=== PATIENT | female | born 1940 | race Caucasian/White ===

== ENCOUNTER 2019-04-06 14:41 | Inpatient (IN) | payer OTHER ==
[~2019-04-06] VITALS: Ht 152.4 cm; Wt 76.1 kg
[2019-04-06] VITALS (26 sets, daily range): BP systolic 82–116; BP diastolic 35–54
--- NOTE | ~2019-04-06 | HC ---
[facility] [place] [address] CONSULTATION Name: MIGUEL GRANDA Room #: 354-P ADM IN M.R.#: [id number] Admission: 04/06/19 ������������������ Attend Phys: Krishna Suarez Discharge: ������������������ Date of : 38 Report #: [id number] THIS REPORT FOR: //name// CC: FAM unknown Krishna Lopez DATE OF SERVICE: 04/14/2019 HISTORY OF PRESENT ILLNESS: The patient is an 78-year-old white female who was admitted to [facility] with right-sided abdominal pain, nausea, weakness, and shortness of breath. She ended up being diagnosed with septic shock, cholecystitis, acute toxic metabolic encephalopathy, and rhabdomyolysis. She underwent ERCP with sphincterotomy with stone removal on 04/07/2019. She underwent a cholecystostomy tube on 04/10/2019 and is to have that in for approximately 6 weeks with plan for a later cholecystectomy. Her course has been complicated by acute hypoxic respiratory failure, warranting mechanical ventilation. She also had acute renal failure superimposed on chronic kidney disease and did warrant a period of dialysis. She had thrombocytopenia. 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 She has been extubated. She no longer is on dialysis, but she has serious weakness and functional decline with her critical illness myopathy. She also has some confusion, disorientation with her encephalopathy, although it does appear to be improving. We are seeing her in rehabilitation medicine consultation. PAST MEDICAL HISTORY: She does have history of recurrent herpetic infection and hypothyroidism, on levothyroxine. MEDICATIONS: Please see the full medication listing. DRUG ALLERGIES: None listed. SOCIAL HISTORY: Living in an apartment with her son who has Down syndrome, no step. She did not utilize gait aids. REVIEW OF SYSTEMS: She did not offer any current complaints of chest pain, shortness of breath or abdominal discomfort. Notes she is overall weak. PHYSICAL EXAMINATION: GENERAL: She is an 78-year-old white female, seen in the intensive care unit. VITAL SIGNS: Temperature 96.4, pulse 80, respirations 19, blood pressure 150/57. NEUROLOGIC: The patient is alert. She does follow basic one-step commands, although there is some latency to her responses. Facies appeared symmetric. MUSCULOSKELETAL: Upper extremities, she has functional range of motion, strength is probably a grade 3+/5. In her lower extremities, she really was [facility] [address] [place] [address] CONSULTATION Name: MIGUEL GRANDA Room #: 354-P [facility] IN M.R.#: [id number] Admission: 04/06/19 ������������������ Attend Phys: Krishna Suarez Discharge: ������������������ Date of : 38 Report #: [id number] only a grade 3- to 3/5. She is able to contract the muscles, but I was not able to get her to lift her leg up off the bed. DTRs were trace to 1. Functionally, she has been max assist for grooming and max assist for bathing per occupational therapy. She appears to have a motor planning impairment. ASSESSMENT: An 78-year-old white female with the following problem list: 1. Critical illness myopathy. 2. Toxic metabolic encephalopathy. 3. Septic shock. 4. Acute hypoxic respiratory failure. 5. Acute renal insufficiency, warranting an episode of dialysis. 6. Prolonged ICU stay. 7. Cholecystitis, status post ERCP with sphincterotomy and stone removal. 8. Status post cholecystostomy. PLAN: Therapy evaluations are underway. We would certainly anticipate that she would benefit from an acute in-hospital inpatient rehabilitation stay as she further medically stabilizes. She does have multiple medical comorbidities and the multiple audit consultant physicians could continue to follow while she is on the acute inpatient rehab ott, which would not be an option if she were to transfer to a fci. At this point, we will be glad to follow along with you regarding her rehab therapy needs. ��������������������������������������������� ���������������������������������������� By: ��������������������������������������������� [id number] 0055 Alexis Raza MD /nt
[2019-04-06 18:16] LABS: BE(vivo) -5.8 mmol/L (-2 to +3); HCO3 17.4 mmol/L (22.0-26.0); PCO2 28.1 mmHg (35.0-45.0); PO2 127.1 mmHg (80.0-100.0); sO2 98.6 % (92.0-98.0)
--- NOTE | 2019-04-06 19:30 | NUR ---
REPORT RECEIVED FROM MEIR FITZGERALD RN AT [facility]. PHYSICIAN CERTIFICATION STATEMENT RECEIVED. PT TRANSPORTED PER EMS, THEN AT 1750 ADMITTED TO ICU #[id number] WITH DIAGNOSIS: SEPSIS, CHOLEYCYSTITIS, RESP FAILURE, CHF, ANNE, LIVER FAILURE. CONTINUED NS WITH KCL 40MEQ 125CC/HR. LEVOPHED INFUSING AT 1 MCG/MIN. ALERT, ORIENTED, SR, TOLERATING BIPAP, NPO, ABD SOFT, BLANCO WITH ADEQUATE URINE OUTPUT. DR. BRADEN WILKERSON PER ANSWERING SERVICE. PRESENT TO SEE PT, THEN HE UPDATED FAMILY MEMBERS ON PLAN OF CARE. THIS VERY PLEASANT FAMILY IN TO SEE PT, GIVEN PRIVACY CODE AND UPDATED ON GUIDELINES FOR ICU. SEE ASSESSMENT FOR DETAILS.
--- NOTE | 2019-04-06 20:11 | NUR ---
CONSULTED TO PLACE A LINE FOR A PATIENT ADMITTEING WITH SEPSIS. ORDER AND CONSENT NOTED. DUE TO THE PATIENTS RENAL FUNCTION AND EGFR BELOW 30 A CENTRAL LINE APPROACH WAS CHOOSEN. DISCUSSED WITH THE PATIENT THE PROCEDURE WELL THE BENIFITS AND RISK OF INFECTION, ARTERIAL CANNULATION AND PNEUMO. SHE VERBALIZED UNDERSTANDING AND CONSENT WAS SIGNED. THE RIGHT JUGULAR VEIN WAS WIDLEY PATENT. A #6F TRIPLE LUMEN POWEWRINJECTABLE JACC CENTRAL LINE WAS PLACED PER HOSPITAL POLICY AFTER A BEDSIDE TIMEOUT WAS COMPLETED.LINE WAS 25CM AND ADVANCED TO 18CM. A STAT CHEST XRAY WAS ORDERED FOR TIP LOCATION VERIFICATION
[2019-04-06 21:06] LABS: APTT 31.4 Seconds (24.5-32.8); INR 1.1; PROTIME 11.4 Seconds (9.3-11.4)
[2019-04-06 21:08] LABS: CALCIUM 9.2 mg/dL (8.5-10.1); CREATININE 3.1 mg/dL (0.6-1.0); POTASSIUM 3.3 mmol/L (3.5-5.1)
[2019-04-06 21:12] LABS: FIBRINOGEN 531.5 mg/dL (210-360)
[2019-04-06 21:44] LABS: BE(vivo) -6.5 mmol/L (-2 to +3); PCO2 28.5 mmHg (35.0-45.0); PO2 100.3 mmHg (80.0-100.0); pH 7.393 (7.360-7.450); sO2 97.6 % (92.0-98.0)
[2019-04-06 21:53] LABS: URINE BILIRUBIN 2+ (Negative); URINE BLOOD 3+ (Negative); URINE CLARITY CLOUDY; URINE COLOR YELLOW; URINE GLUCOSE-RANDOM* NEGATIVE (Negative); URINE KETONES NEGATIVE (Negative); URINE LEUKOCYTES-REFLEX NEGATIVE (Negative); URINE NITRITE-REFLEX NEGATIVE (Negative); URINE PROTEIN (DIPSTICK) 2+ (Negative); URINE SPECIFIC GRAVITY 1.015 (1.005-1.035); URINE UROBILINOGEN 0.2 E.U./dl (0.2-1.0)
[2019-04-06 22:06] LABS: ICTOTEST (BILI CONFIRMATORY) Positive (Negative)
[2019-04-06 22:09] LABS: CELLULAR CASTS 0-3 Few /LPF (None Seen); COARSE GRANULAR CASTS 0-3 Few /LPF (None Seen); FINE GRANULAR CASTS 4-10 Moderate /LPF (None Seen); HYALINE CASTS 0-3 Few /LPF (None Seen); MUCUS 0-3 Light strn/LPF (None Seen); SQUAMOUS 4-10 Moderate /LPF (0-3); URINE WBC-REFLEX None Seen /HPF (0-5); WBC CASTS 0-3 Few /LPF (None Seen)
[2019-04-06 22:10] LABS: BACTERIA-REFLEX None Seen /HPF (None Seen); URIC ACID CRYSTALS 4-10 Moderate /LPF (None Seen); URINE RBC 3-10 Few /HPF (0-2)
[2019-04-06 22:11] LABS: TRANSITIONAL EPITHEL CELL 4-10 Moderate /LPF (None Seen)
[2019-04-06 22:49] LABS: HEMATOCRIT 36.7 % (37.0-47.0); HEMOGLOBIN 12.2 gm/dL (12.0-15.0); MCH 30.8 pg (26.0-34.0); MCHC 33.3 g/dL (28.0-37.0); MCV 92.6 fL (80.0-100.0); RBC 3.96 mil/uL (4.20-5.00); RDW 14.7 % (10.5-14.5); WBC 21.3 thou/uL (4.0-11.0)
[2019-04-07] VITALS (88 sets, daily range): BP systolic 81–164; BP diastolic 37–103
[2019-04-07 04:28] LABS: HEMATOCRIT 34.7 % (37.0-47.0); HEMOGLOBIN 11.5 gm/dL (12.0-15.0); MCH 31.1 pg (26.0-34.0); MCHC 33.2 g/dL (28.0-37.0); MCV 93.8 fL (80.0-100.0); PLATELET COUNT 62 thou/uL (150-400); RDW 15.5 % (10.5-14.5); WBC 30.6 thou/uL (4.0-11.0)
[2019-04-07 04:29] LABS: CALCIUM 8.6 mg/dL (8.5-10.1); CREATININE 3.2 mg/dL (0.6-1.0)
[2019-04-07 04:34] LABS: POTASSIUM 5.1 mmol/L (3.5-5.1)
[2019-04-07 05:17] LABS: ABSOLUTE NEUTROPHILS 24.8 thou/uL (1.4-8.2); IMMATURE MONONUCLEARS 1 %; METAMYELOCYTES 10 %; MYELOCYTES 2 %; PLATELET ESTIMATE DECREASED
[2019-04-07 05:18] LABS: TOXIC GRANULATION 1+
--- NOTE | 2019-04-07 06:00 | NUR ---
REMAINS ON BIPAP 40 % FIO2. PT IS CALM AND COOPERATIVE. HAS SLEPT AT INTERVALS TONIGHT. HAD A 500 CC BOLUS NS FOR LOW UO. ONLY 180 CC TOTAL UO THIS SHIFT. Phoebe SCHRADER NOTIFIED. ALSO MADE AWARE OF + BLOOD CULTURES FOR GRAM NEG RODS AND WBC 30,000 CVP 12 TO 15. SINUS RHYTHM AFEBRILE TEMP 98.6 AXI MORPHINE 2 MG EARLIER GIVEN FOR HEADACHE. REMAINS JAUNDICE. A VERY SWEET LITTLE LADY. DOCTORS PRATIMA HUFFMAN AND DR MAJANO CONSULTED THIS EVENING. PT ONLY REQUEST IS A DRINK OF WATER. WILL CONT TO MONITOR.
[2019-04-07 09:37] LABS: ALBUMIN 2.2 g/dL (3.4-5.0); DIRECT BILIRUBIN 5.6 mg/dL (<0.1-0.3); TOTAL BILIRUBIN 6.4 mg/dL (<0.1-1.0); TOTAL PROTEIN 5.1 g/dL (6.4-8.2)
[2019-04-07 09:49] LABS: URINE CREATININE-RANDOM* 81.3 mg/dL
[2019-04-07 12:38] LABS: ALBUMIN 2.1 g/dL (3.4-5.0); CALCIUM 8.3 mg/dL (8.5-10.1); CREATININE 3.6 mg/dL (0.6-1.0); PHOSPHORUS 3.5 mg/dL (2.5-4.9); POTASSIUM 4.9 mmol/L (3.5-5.1)
--- NOTE | 2019-04-07 14:30 | NUR ---
Pt was taken to surgery for ERCP. Signature for consent was obtained prior to leaving for surgery. Levophed weaned off at 1210.
--- NOTE | 2019-04-07 16:00 | NUR ---
Pt returned to ICU from surgery following ERCP. Pt is intubated and drowsy. Pt will arouse and VELAZQUEZ weakly. Family in waiting area.
[2019-04-07 16:36] LABS: BE(vivo) -11.3 mmol/L (-2 to +3); HCO3 15.5 mmol/L (22.0-26.0); PCO2 37.9 mmHg (35.0-45.0); PO2 90.1 mmHg (80.0-100.0); sO2 95.4 % (92.0-98.0)
--- NOTE | 2019-04-07 19:00 | NUR ---
Pt remains on vent. Lightly sedated with Propofol. Urine output is improving.
--- NOTE | 2019-04-07 19:15 | NUR ---
Report given to oncoming RN. Remains NSR. Levophed reamins off.
[2019-04-07 20:06] LABS: CALCIUM 8.3 mg/dL (8.5-10.1); CREATININE 3.7 mg/dL (0.6-1.0); POTASSIUM 4.8 mmol/L (3.5-5.1)
--- NOTE | 2019-04-07 22:07 | NUR ---
Late entry for 1100 today: Renal and ID consults were obtained. Pt oliguric. Urine specimen sent to lab prior to administration of Lasix 100 mg IV-see emar. Slowly weaning Levophed. Pt to go to surgery today for ERCP. Family at bedside.
[2019-04-07] MEDS ORDERED: ACYCLOVIR 400400 MG PO (22:32)
[2019-04-07] MEDS ORDERED: SYNTHROID50 MCG PO (22:34)
[2019-04-07] MEDS ORDERED: PULMICORT0.5 MG/22 (22:37)
[2019-04-07] MEDS ORDERED: SIMVASTATIN40 MG PO (22:38)
[2019-04-07] MEDS ORDERED: COLESTID1 GM PO (22:40)
[2019-04-07] MEDS ORDERED: BETIMOL5 ML OPHTHALMIC (22:42)
[2019-04-08] VITALS (92 sets, daily range): BP systolic 81–162; BP diastolic 40–83
[2019-04-08 05:22] LABS: BE(vivo) -3.7 mmol/L (-2 to +3); PCO2 37.2 mmHg (35.0-45.0); PO2 153.2 mmHg (80.0-100.0); sO2 98.9 % (92.0-98.0)
[2019-04-08 05:33] LABS: WBC 33.2 thou/uL (4.0-11.0)
[2019-04-08 05:35] LABS: HEMOGLOBIN 11.4 gm/dL (12.0-15.0); MCH 31.3 pg (26.0-34.0); MCHC 33.5 g/dL (28.0-37.0); MCV 93.3 fL (80.0-100.0); PLATELET COUNT 39 thou/uL (150-400); RBC 3.64 mil/uL (4.20-5.00); RDW 15.4 % (10.5-14.5)
[2019-04-08 05:49] LABS: ALBUMIN 1.8 g/dL (3.4-5.0); CALCIUM 8.2 mg/dL (8.5-10.1); DIRECT BILIRUBIN 2.5 mg/dL (<0.1-0.3); MAGNESIUM 1.8 mg/dL (1.8-2.4); POTASSIUM 4.3 mmol/L (3.5-5.1); TOTAL BILIRUBIN 3.2 mg/dL (<0.1-1.0); TOTAL PROTEIN 5.3 g/dL (6.4-8.2)
--- NOTE | 2019-04-08 06:30 | NUR ---
PT INTUBATED AND ON VENT. LIGHTLY SEDATED WITH PROPOFOL GTT. PT FOLLOWS COMMANDS AND OPENS EYES TO COMMAND. PT BP GRADUALLY DROPPING EARLY IN THE SHIFT. LEVO GTT RESTARTED. PT GIVEN MORPHINE X2 FOR PAIN. URINE OUTPUT LOW, RENAL AWARE. PT WILL GO TO IR THIS MORNING TO HAVE TEMPORARY DIALYSIS CATH PLACED. WILL CONTINUE TO MONITOR.
[2019-04-08 06:42] LABS: ABSOLUTE NEUTROPHILS 31.9 thou/uL (1.4-8.2)
[2019-04-08 06:43] LABS: ANISOCYTOSIS 1+; LARGE PLATELETS FEW; PLATELET ESTIMATE MARKEDLY DECREASED; POLYCHROMASIA 1+; SCHISTOCYTES 1+
[2019-04-08 08:24] LABS: ALBUMIN 1.8 g/dL (3.4-5.0); DIRECT BILIRUBIN 2.5 mg/dL (<0.1-0.3); TOTAL PROTEIN 5.5 g/dL (6.4-8.2)
--- NOTE | 2019-04-08 11:22 | HC ---
[facility] [place] [address] CONSULTATION Name: MIGUEL GRANDA Room #: 237-P ADM IN M.R.#: [id number] Admission: 04/06/19 ������������������ Attend Phys: Krishna Suarez Discharge: ������������������ Date of : 38 Report #: [id number] THIS REPORT FOR: //name// CC: Krishna Zamora DATE OF SERVICE: 04/07/2019 INFECTIOUS DISEASE CONSULTATION ATTENDING PHYSICIAN: Krishna Suarez MD. REASON FOR CONSULTATION: Sepsis. HISTORY OF PRESENT ILLNESS: An 78-year-old white woman unwell since yesterday or day before, initially hospitalized at [facility] where she was found to have abnormal liver function tests and CT scan of the abdomen and pelvis compatible with acute cholecystitis, biliary obstruction, cholelithiasis. She was given meropenem, Zosyn and Flagyl. She is transferred to [facility]. She is in the ICU receiving low dose Levophed. Denies much discomfort, though after some prodding, she goes on telling me that she has some right-sided abdominal pain. DRUG ALLERGIES: None listed. MEDICATIONS: She is currently on meropenem 500 mg IV 2 times daily, p.r.n. morphine sulfate, intravenous fluids, alteplase, p.r.n. glucagon, p.r.n. glucose, regular insulin intravenously, Levophed low dose, Lasix 100 mg 1 time, vasopressin, potassium supplementation. She has received some loading dose of Zosyn as well. PAST MEDICAL HISTORY: Acute cholecystitis with bacteremia. Choledocholithiasis. Acute renal failure with decreased urinary output. Dyslipidemia. The patient has a history of recurrent herpetic infection and is on acyclovir. There is a history of hypothyroidism, on levothyroxine. She is receiving some budesonide inhalation treatments. SOCIAL HISTORY: See H and P, old records. FAMILY HISTORY: See H and P, old records. REVIEW OF SYSTEMS: As above and see H and P. PHYSICAL EXAMINATION: GENERAL: A well-developed, not toxic looking woman on BiPAP. [facility] [address] [place] [address] CONSULTATION Name: MIGUEL GRANDA ANN Room #: 237-P [facility] IN M.R.#: [id number] Admission: 04/06/19 ������������������ Attend Phys: Krishna Suarez Discharge: ������������������ Date of : 38 Report #: [id number] VITAL SIGNS: Pulse 85, respirations 13, BP 123/61, temperature 98.8, O2 saturation is 99% on BiPAP, FiO2 40%. HEENMT: Dry mucous membrane. NECK: Supple, no thyromegaly. LUNGS: Few basilar crackles, right base. HEART: S1, S2. No gallop. BREASTS: Deferred. ABDOMEN: Mildly tender right upper abdominal quadrant. No masses or megaly. PELVIC AND RECTAL: Deferred. EXTREMITIES: No clubbing, cyanosis. NEUROLOGIC: Grossly within normal limits. SKIN: Revealed icterus. LABORATORY DATA: Sodium 134, potassium 5.1, CO2 of 20, BUN 47, creatinine 3.2, glucose 125. SGOT 135. Total bilirubin 6.4, direct bilirubin 5.6. Magnesium 1.7, alkaline phosphatase 206 U/L, SGPT 111 U/L, albumin 2.2 g/dL. Fibrinogen 531.5. WBC elevated at 30,600, hemoglobin 11.5 g/dL, platelets decreased initially 95,000, today 62,000. The white blood cell count differential revealed 47% segmented neutrophils, 34% bands. Procalcitonin significantly elevated 220.44 ng/mL. Urinalysis revealed 2+ bilirubin, positive leukocyte esterase, 3+ blood, 4-10 squamous epithelial cells and transitional epithelial cells per HPF, microscopic hematuria and no bacteriuria, fine granular casts, wbc casts present as well, which possibly indicate we are dealing also with urinary tract infection. CT scan of the abdomen and pelvis at [facility] reveals acute cholecystitis, choledocholithiasis and left renal cyst. Arterial blood gases reveal pH 7.39, pCO2 of 28, pO2 of 100, bicarbonate 17, lactate elevated at 3.39 millimoles per liter. These set of gases is on FiO2 40%, 8 of PEEP and a respiratory rate of 12. ASSESSMENT: 1. Severe sepsis secondary to acute cholecystitis -- choledocholithiasis with cholangitis and bacteremia with gram-negative rods. 2. Metabolic and lactic acidosis. 3. Acute renal failure. 4. Dyslipidemia. 5. History of herpetic infection -- recurrent. SUGGESTIONS: Recommend hydrocortisone 50 mg IV every 8 hours. Change meropenem to Zosyn 3.375 grams IV every [address] [address] CONSULTATION Name: MIGUEL GRANDA Room #: 237-P ADM IN M.R.#: [id number] Admission: 04/06/19 ������������������ Attend Phys: Krishna Suarez Discharge: ������������������ Date of : 38 Report #: [id number] Suarez, thank you for requesting my suggestions. ��������������������������������������������� <ELECTRONICALLY SIGNED> ���������������������������������������� By: Luis Alberto Arias MD ��������������������������������������������� 04/08/19 1122 [id number] Luis Alberto Arias MD /nt
--- NOTE | 2019-04-08 16:11 | NUR ---
patient transferred to [facility] from [facility]. Patient had ERCP intubated and remains intubated. Sp with son reviewed role of casemgt. Patient resides in independent home with son who has MR. Currently son wih MR with Aron Perez. Son reports patient driving, using no assistive device and independent with adls. Casemgt following for dc planning possible need for rehab.
--- NOTE | 2019-04-08 20:00 | NUR ---
PATIENT PLACED ON GUTIERREZ HUGGER AT MEDIUM FOR TEMP OF 95.1 AND LATER DECREASED TO LOW TEMP WAS UP TO 97
--- NOTE | 2019-04-08 20:00 | NUR ---
SHIFT SUMMARY PATIENT RESTING QUIETLY ON THE VENT WITH PROPOFOL AT 11MCG. SCANT AMT OF SECRETIONS FROM ETT AND ORALLY WITH BREATHE SOUNDS IMPROVED. LEFT JUGULAR DIALYSIS CATH INSERTED IN IR THIS AM, TOLERATED THE PROCEDURE WITHOUT INCIDENT. DIALYSIS FOR 3 HOURS THIS AFTERNOON WITHOUT FLUID REMOVAL. TOLERATED PROCEDURE WITHOUT INCIDENT. LEVOPHED TAPPED TO 2MCG/MIN WITHOUT INCIDENT MAP IS GREATER THAN 65. MONITOR SINUS MAGY TO NSR. REASSURANCE GIVEN TO PATIENT AND FAMILY , PROCEDURES EXPLAINED AND SONS VERBALIZED UNDERSTANDING.
[2019-04-09] VITALS (121 sets, daily range): BP systolic 88–165; BP diastolic 42–87
--- NOTE | 2019-04-09 06:30 | NUR ---
PT INTUBATED AND ON VENT. LIGHTLY SEDATED WITH PROPOFOL GTT. PT ON AND OFF A LOW RATE OF LEVO GTT. PT WAKES EASILY, BUT IS VERY DROWSY. PT FOLLOWS SIMPLE COMMANDS. URINE OUTPUT CONTINUES TO BE LOW. PT WILL HAVE DIALYSIS TODAY. WILL CONTINUE TO MONITOR.
[2019-04-09 06:35] LABS: HEMATOCRIT 37.3 % (37.0-47.0); HEMOGLOBIN 12.6 gm/dL (12.0-15.0); MCH 31.1 pg (26.0-34.0); MCHC 33.8 g/dL (28.0-37.0); MCV 91.8 fL (80.0-100.0); PLATELET COUNT 39 thou/uL (150-400); RBC 4.06 mil/uL (4.20-5.00); WBC 36.5 thou/uL (4.0-11.0)
[2019-04-09 06:54] LABS: ALBUMIN 1.8 g/dL (3.4-5.0); CALCIUM 8.6 mg/dL (8.5-10.1); CREATININE 3.4 mg/dL (0.6-1.0); PHOSPHORUS 3.2 mg/dL (2.5-4.9); POTASSIUM 3.8 mmol/L (3.5-5.1); TOTAL BILIRUBIN 2.1 mg/dL (<0.1-1.0); TOTAL PROTEIN 5.7 g/dL (6.4-8.2)
[2019-04-09 07:05] LABS: ABSOLUTE NEUTROPHILS 33.2 thou/uL (1.4-8.2)
[2019-04-09 07:06] LABS: ANISOCYTOSIS 1+; LARGE PLATELETS FEW; PLATELET ESTIMATE MARKEDLY DECREASED; POLYCHROMASIA 1+; SCHISTOCYTES 1+
[2019-04-09 07:10] LABS: HEPATITIS B SURFACE AG Negative (Negative)
[2019-04-09 10:44] LABS: BE(vivo) 4.1 mmol/L (-2 to +3); HCO3 26.9 mmol/L (22.0-26.0); pH 7.504 (7.360-7.450); sO2 96.3 % (92.0-98.0)
--- NOTE | 2019-04-09 12:08 | NUR ---
VASCULAR ACCESS NURSE ROUNDING. CENTRAL LINE ACCESS CONTINUES TO BE APPROPRIATE FOR THIS PATIENT. SHE CONTINUES ON MULTIPLE IV MEDS WELL CVP MONITORING. WE WILL CONTINUE TO ROUND AND EVALUATE LINE STATUS DAILY
--- NOTE | 2019-04-09 12:11 | 2DMMODE ---
[facility] [address] [place] [address] 2 D/M-MODE ECHOCARDIOGRAM Name: MIGUEL GRANDA ANN Room #: 237-P ADM IN M.R.#: [id number] ������������� Admission: 04/06/19 ������������� Attend Phys: Krishna Delarosa Discharge: ��� ������������� ��� Date of : 36 Date of Service: 04/09/19 1211 �� Report #: [id number] �������� ��������������������������������������������[id number] THIS REPORT FOR: //name// APPROVED REPORT Study performed: 04/09/2019 11:16:06 EXAM: Comprehensive 2D, Doppler, and color-flow Echocardiogram Patient Location: ICU Room #: [facility] Status: routine BSA: 1.76 HR: 71 bpm BP: 120/59 mmHg Rhythm: NSR Other Information Study Quality: Good Indications Septic Shock 2D Dimensions RVDd: 39.19 mm IVSd: 9.84 (7-11mm) LVOT Diam: 18.76 (18-24mm) LVDd: 46.51 mm PWd: 8.84 (7-11mm) Ascending Ao: 30.68 (22-36mm) LVDs: 31.19 (25-40mm) Aortic Root: 29.04 mm Volumes Left Atrial Volume (Systole) Single Plane 4CH: 56.53 mL Single Plane 2CH: 57.70 mL LA ESV Index: 35.00 mL/m2 Aortic Valve AoV Peak Rome.: 1.31 m/s AO Peak Gr.: 6.91 mmHg LVOT Max P.20 mmHg LVOT Max V: 0.89 m/s CANDE Vmax: 1.88 cm2 Mitral Valve E/A Ratio: 0.9 MV Decel. Time: 209.36 ms MV E Max Rome.: 0.88 m/s [facility] [address] [place] [address] 2 D/M-MODE ECHOCARDIOGRAM Name: MIGUEL GRANDA ANN Room #: 237-P [facility] IN ..#: [id number] ������������� Admission: 04/06/19 ������������� Attend Phys: Krishna Delarosa Discharge: ��� ������������� ��� Date of : 36 Date of Service: 04/09/19 1211 �� Report #: [id number] �������� ��������������������������������������������[id number] MV A Rome.: 0.96 m/s MV PHT: 60.71 ms IVRT: 89.97 ms Pulmonary Valve PV Peak Rome.: 0.93 m/s PV Peak Gr.: 3.48 mmHg Pulmonary Vein P Vein S: 0.41 m/s P Vein A: 0.32 m/s P Vein D: 0.54 m/s P Vein A Dur.: 133.8 msec P Vein S/D Ratio: 0.76 Tricuspid Valve TR Peak Rome.: 2.65 m/s RAP Estimate: 10.00 mmHg TR Peak Gr.: 28.11 mmHg PA Pressure: 38.00 mmHg Left Ventricle The left ventricle is normal size. There is normal LV segmental wall motion. There is normal left ventricular wall thickness. Left ventricular systolic function is normal. LVEF is 50-55%. Mild diastolic dysfunction is present (impaired relaxation pattern). Right Ventricle The right ventricle is normal size. The right ventricular systolic function is normal. Atria Left atrium is mildly dilated. Right atrium is at the upper limits of normal. Aortic Valve Aortic valve is trileaflet, midly thickened and calcified. No aortic regurgitation is present. There is no aortic valvular stenosis. Mitral Valve The mitral valve is normal in structure. Moderate mitral annular calcification. Mild to moderate mitral regurgitation. Tricuspid Valve The tricuspid valve is normal in structure. Moderate tricuspid regurgitation. Estimated PAP is 35-40mmHg. Pulmonic Valve [facility] [address] [place] [address] 2 D/M-MODE ECHOCARDIOGRAM Name: MIGUEL GRANDA ANN Room #: 237-P [facility] IN .R.#: [id number] ������������� Admission: 04/06/19 ������������� Attend Phys: Krishna Delarosa Discharge: ��� ������������� ��� Date of : 36 Date of Service: 04/09/19 1211 �� Report #: [id number] �������� ��������������������������������������������[id number] The pulmonary valve is normal in structure. Mild pulmonic regurgitation. Great Vessels The aortic root is normal in size. The ascending aorta is normal in size. IVC is normal in size and collapses <50% with inspiration. Pericardium There is no pericardial effusion. Left pleural effusion noted. <Conclusion> The left ventricle is normal size. LVEF is 50-55%. Left atrium is mildly dilated. Aortic valve is trileaflet, midly thickened and calcified. The mitral valve is normal in structure. Moderate mitral annular calcification. Mild to moderate mitral regurgitation. The tricuspid valve is normal in structure. Moderate tricuspid regurgitation. Estimated PAP is 35-40mmHg. The pulmonary valve is normal in structure. Mild pulmonic regurgitation. Left pleural effusion noted. ��������������������������������������������� <ELECTRONICALLY SIGNED> ���������������������������������������� By: Walter Weber MD ��������������������������������������������� 04/09/19 121 10 10 Walter Weber MD /INF
--- NOTE | 2019-04-09 18:22 | NUR ---
ASSUMED CARE @0700 04/09/19, PT ASESSMENTS AND VSS COMPLETE PER ICU PROTOCOL, PT ABLE TO FOLLOW COMMANDS DURING SEDATION VACATION. PT ON THE VENT, PROPOFOL FOR VENT MANAGEMENT SEDATION, PLEASE SEE PROCESS INTERVENTIONS FOR VENT SETTINGS, EQAUL CHEST EXPANSION NOTED. PT SB ON THE MONITOR, LEVO BEEN OFF SINCE 1050 THIS AM, PT ABLE TO TOLERATE IT WELL. PT HAS DIALYSIS TODAY, NO FLUID TAKEN OFF, PT WAS ABLE TO TOLERATE WELL. OG IN PLACE TO LIS, BLANCO IN PLACE, LOW OUTPUT NOTED, KIDNEY TEAM AWARE OF LOW OUTPUT. NATE TUBE PLACEMENT BY IR ORDERED FOR TOMORROW. RECORDS RETRIEVED FROM PRIMARY CARE DR, DR FORTE AND FAXED TO DR PRETTY (HEMATOLOGY) TEAM, PROTOCOL FOR RETRIEVAL FOLLOWED. FAMILY HAD CONCERNS ABOUT TIMOLOL MALEATE USE, DR FELICIANO CALLED AND ORDERS RECIEVED. PLAN OF CARE- CONT TO MONITOR.
[2019-04-10] VITALS (69 sets, daily range): BP systolic 85–166; BP diastolic 42–80
--- NOTE | 2019-04-10 05:11 | NUR ---
PT INTUBATED AND ON VENT. LIGHTLY SEDATED WITH PROPOFOL. PT IS ON A LOW RATE OF PROPOFOL AND TOLERATES THE VENT WELL. PT WAKES, OPENS EYES TO NAME, AND FOLLOWS SIMPLE COMMANDS ON PROPOFOL GTT. PT HAS REMAINED OFF OF LEVO GTT THROUGH THE NIGHT. PT HAD A LARGE, BROWN BM OVERNIGHT. PT CONTINUES TO HAVE LOW URINE OUTPUT. PT WILL HAVE DIALYSIS AGAIN TODAY. ALSO, THERE ARE PLANS FOR THE PT TO GO TO IR TO HAVE A NATE TUBE PLACED. NO ORDER HAS BEEN ENTERED YET, SO CONSENT HAS NOT BEEN SIGNED. CONSULT ORDERED FOR IR PHYSICIAN YESTERDAY. WILL CONTINUE TO MONITOR.
[2019-04-10 05:28] LABS: BE(vivo) 6.1 mmol/L (-2 to +3); HCO3 28.5 mmol/L (22.0-26.0); PCO2 33.9 mmHg (35.0-45.0); PO2 63.6 mmHg (80.0-100.0); pH 7.542 (7.360-7.450); sO2 94.7 % (92.0-98.0)
[2019-04-10 06:14] LABS: HEMOGLOBIN 12.8 gm/dL (12.0-15.0); MCH 30.7 pg (26.0-34.0); MCHC 33.6 g/dL (28.0-37.0); MCV 91.3 fL (80.0-100.0); PLATELET COUNT 50 thou/uL (150-400); RBC 4.16 mil/uL (4.20-5.00); RDW 14.9 % (10.5-14.5); WBC 32.9 thou/uL (4.0-11.0)
[2019-04-10 06:30] LABS: ALBUMIN 1.6 g/dL (3.4-5.0); CALCIUM 8.4 mg/dL (8.5-10.1); CREATININE 2.9 mg/dL (0.6-1.0); PHOSPHORUS 3.2 mg/dL (2.5-4.9); POTASSIUM 3.6 mmol/L (3.5-5.1); TOTAL BILIRUBIN 1.5 mg/dL (<0.1-1.0); TOTAL PROTEIN 5.1 g/dL (6.4-8.2)
[2019-04-10 07:10] LABS: ABSOLUTE NEUTROPHILS 28.6 thou/uL (1.4-8.2); METAMYELOCYTES 1 %
[2019-04-10 07:11] LABS: ANISOCYTOSIS SLIGHT; LARGE PLATELETS OCCASIONAL
--- NOTE | 2019-04-10 14:52 | NUR ---
PATIENT ON THE VENT AND LIGHTLY SEDATED. AWAKENS EASILY AND FOLLOWS COMMANDS AND VITALS STAABLE. HEMODIALYSIS COMPLETED THIS MORNING AND TOLERATED WELL. CHOLECYSTOSTOMY TUBE PLACED AT THE BEDSIDE THIS AFTERNOON. NGT TO BELLA SHARMA WITH MINIMAL OUTPUT. FAMILY UPDATED. WILL CONTINUE TO MONITOR CLOSELY.
--- NOTE | 2019-04-10 15:04 | NUR ---
W[employer]DING [employer] TAKEN OFF HER FINGER AND SENT HOME WITH [id number] IVANA GRANDA TO TAKE HOME.
[2019-04-11] VITALS (46 sets, daily range): BP systolic 85–169; BP diastolic 31–74
--- NOTE | 2019-04-11 04:54 | NUR ---
PT REMAINS INTUBATED AND ON VENT. LIGHTLY SEDATED WITH PROPOFOL. NO CHANGES OVER NIGHT. PT WILL HAVE HEMODIALYSIS AGAIN TODAY. WILL CONTINUE TO MONITOR.
[2019-04-11 05:13] LABS: BE(vivo) 3.3 mmol/L (-2 to +3); HCO3 26.9 mmol/L (22.0-26.0); PCO2 37.7 mmHg (35.0-45.0); PO2 94.5 mmHg (80.0-100.0); pH 7.472 (7.360-7.450); sO2 97.6 % (92.0-98.0)
[2019-04-11 05:58] LABS: CALCIUM 8.8 mg/dL (8.5-10.1); CREATININE 2.9 mg/dL (0.6-1.0); POTASSIUM 4.1 mmol/L (3.5-5.1)
[2019-04-11 06:00] LABS: HEMATOCRIT 37.7 % (37.0-47.0); HEMOGLOBIN 12.6 gm/dL (12.0-15.0); RDW 15.1 % (10.5-14.5)
[2019-04-11 06:05] LABS: MCH 30.9 pg (26.0-34.0); MCHC 33.4 g/dL (28.0-37.0); MCV 92.5 fL (80.0-100.0); RBC 4.07 mil/uL (4.20-5.00)
[2019-04-11 08:48] LABS: ABSOLUTE NEUTROPHILS 28.8 thou/uL (1.4-8.2); PLATELET COUNT 63 thou/uL (150-400); PLATELET ESTIMATE SLIGHTLY DECREASED
[2019-04-11 15:44] LABS: BE(vivo) 1.3 mmol/L (-2 to +3); HCO3 24.8 mmol/L (22.0-26.0); PCO2 35.7 mmHg (35.0-45.0); pH 7.459 (7.360-7.450); sO2 97.4 % (92.0-98.0)
--- NOTE | 2019-04-11 16:16 | NUR ---
SUMMARY: PATIENT HAD BEEN ON THE VENT AND SEDATED THIS MORNING, UNDERWENT DIALYSIS AND TOLERATED WELL. NO SIGNS OF PAIN OR DISTRESS. FOLLOWING COMMANDS WITH LIGHT SEDATION. CPAP TRIAL THIS AFTERNOON SUCCESSFUL AND PATIENT EXTUBATED AT 1600 AND PLACED ON 3L NC AND IS MAINTAINING SATS>92%. WILL CONTINUE TO MONITOR CLOSELY.
--- NOTE | 2019-04-11 16:31 | NUR ---
SW reviewed chart and spoke with attending physician. Pt remains intubated and requiring dialysis. No weekend discharge planned. DELIA is following to assist as needed with discharge planning.
[2019-04-12] VITALS (19 sets, daily range): BP systolic 94–150; BP diastolic 38–69
--- NOTE | 2019-04-12 05:30 | NUR ---
ASSUMED CARE OF PT. AT 1900. PT. IS ALERT AND ORIENTED, BUT CAN BE FORGETFUL AT TIMES. PT. DENIES PAIN AND ASKS FOR ICE CHIPS AND WATER. 1 LIQUID BM THIS AM. PT. HAS GENERALIZED WEAKNESS, BUT HAS FULL RANGE OF MOTION IN ALL EXTREMITIES. PLAN OF CARE IS TO CONTINUE TO MONITOR OXYGENATION, MAINTAIN HEMODYNAMIC STABILTY, AND GET DIALYSIS TODAY. WILL CONTINUE TO MONITOR.
[2019-04-12 05:34] LABS: HEMATOCRIT 38.3 % (37.0-47.0); HEMOGLOBIN 12.6 gm/dL (12.0-15.0); MCH 30.3 pg (26.0-34.0); MCHC 32.8 g/dL (28.0-37.0); MCV 92.3 fL (80.0-100.0); PLATELET COUNT 105 thou/uL (150-400); RBC 4.15 mil/uL (4.20-5.00); RDW 15.2 % (10.5-14.5); WBC 27.5 thou/uL (4.0-11.0)
[2019-04-12 05:52] LABS: CALCIUM 8.4 mg/dL (8.5-10.1); CREATININE 3.3 mg/dL (0.6-1.0); DIRECT BILIRUBIN 0.9 mg/dL (<0.1-0.3); POTASSIUM 3.9 mmol/L (3.5-5.1); TOTAL BILIRUBIN 1.7 mg/dL (<0.1-1.0); TOTAL PROTEIN 5.3 g/dL (6.4-8.2)
[2019-04-12 05:55] LABS: ABSOLUTE NEUTROPHILS 22.8 thou/uL (1.4-8.2); METAMYELOCYTES 1 %; MYELOCYTES 2 %
[2019-04-12 05:56] LABS: LARGE PLATELETS OCCASIONAL
[2019-04-13] VITALS (20 sets, daily range): BP systolic 111–157; BP diastolic 54–77
[2019-04-13 05:31] LABS: HEMATOCRIT 36.5 % (37.0-47.0); HEMOGLOBIN 12.4 gm/dL (12.0-15.0); MCH 30.9 pg (26.0-34.0); MCV 90.9 fL (80.0-100.0); PLATELET COUNT 147 thou/uL (150-400); RBC 4.02 mil/uL (4.20-5.00); RDW 14.7 % (10.5-14.5); WBC 25.1 thou/uL (4.0-11.0)
[2019-04-13 05:44] LABS: CALCIUM 8.2 mg/dL (8.5-10.1); CREATININE 3.2 mg/dL (0.6-1.0); PHOSPHORUS 6.5 mg/dL (2.5-4.9); POTASSIUM 3.8 mmol/L (3.5-5.1)
[2019-04-13 06:25] LABS: ABSOLUTE NEUTROPHILS 22.1 thou/uL (1.4-8.2)
[2019-04-13 06:26] LABS: LARGE PLATELETS OCCASIONAL
--- NOTE | 2019-04-13 06:40 | NUR ---
END OF SHIFT SUMMARY: Pt progressing slowly toward goals. Tolerating clear liquids well. Urine output adequate. Monitor remains sinus rhythm.
--- NOTE | 2019-04-13 19:00 | NUR ---
SHIFT SUMMARY PATIENT PROGRESSING TOWARDS OUTCOME GOALS SLOWLY EVIDENT BY, PATIENT ON ROOM AIR WITH O2 SAT 90 TO 92%. LASIX GIVEN WITH 1425 ML OF U/O PER BLANCO TODAY. OCC FORGETFUL, MORE ALERT AT 1600 ASSESSMENT, ASSIST WITH TURNING OT AND PT ORDERED. TOLERATING FULL LIQUID DIET WITH MIN PAIN IN RUQ OF ABD. PATIENT HANDS TREMORS WHEN FEEDING SELF, POOR HAND TO MOUTH COORDINATION. INSENTIVE SPIROMETERY ENCOURAGED 400 TO 600. ENCOURAGEMENT AND REASSURANCE GIVEN.
[2019-04-14] VITALS (15 sets, daily range): BP systolic 95–167; BP diastolic 40–78
--- NOTE | 2019-04-14 03:57 | NUR ---
PT A&O, BUT DROWSY AND FLAT. PT IS SLOW TO RESPOND. INITIALLY PT ON ROOM AIR AND O2 SAT AROUND 92-93%. O2 SAT DROPPED TO THE 80s WHEN THE PT BEGAN TO FALL ASLEEP, 2L O2 PER NC APPLIED. PT IS EXTREMELY WEAK, PT/OT CONSULTED YESTERDAY TO WORK WITH PATIENT. PT IS ON A FULL LIQUID DIET, BUT MAY ADVANCE DIET IF TOLERATING. PT CONTINUES TO NEED ENCOURAGEMENT TO USE INCENTIVE SPIROMETER; EDUCATION GIVEN. PT HAS TX ORDERS FOR CCU. WILL CONTINUE TO MONITOR.
[2019-04-14 05:17] LABS: HEMATOCRIT 35.6 % (37.0-47.0); HEMOGLOBIN 11.9 gm/dL (12.0-15.0); MCH 30.7 pg (26.0-34.0); MCHC 33.3 g/dL (28.0-37.0); MCV 92.3 fL (80.0-100.0); RBC 3.86 mil/uL (4.20-5.00); RDW 14.5 % (10.5-14.5); WBC 14.7 thou/uL (4.0-11.0)
[2019-04-14 05:32] LABS: ALBUMIN 1.7 g/dL (3.4-5.0); CALCIUM 7.7 mg/dL (8.5-10.1); PHOSPHORUS 5.3 mg/dL (2.5-4.9); POTASSIUM 3.5 mmol/L (3.5-5.1); TOTAL BILIRUBIN 1.4 mg/dL (<0.1-1.0); TOTAL PROTEIN 4.6 g/dL (6.4-8.2)
--- NOTE | 2019-04-14 11:27 | HC ---
[facility] [place] [address] CONSULTATION Name: MIGUEL GRANDA Room #: 237-P ADM IN M.R.#: [id number] Admission: 04/06/19 ������������������ Attend Phys: Krishna Suarez Discharge: ������������������ Date of : 38 Report #: [id number] THIS REPORT FOR: //name// CC: Krishna Zamora DATE OF SERVICE: 04/07/2019 REASON FOR CONSULTATION: Acute kidney injury. HISTORY OF PRESENT ILLNESS: An 78-year-old patient developed worsening abdominal pain, was found down and short winded, came to the [facility], was found to have choledocholithiasis and cholecystitis. Serum creatinine initially 2.6, rising to 3.2 with transfer to this hospital and seen in the ICU. She has been reasonably healthy. She has a history of "colitis" for which she takes colestipol and also takes a statin and some eyedrops for glaucoma. PAST MEDICAL HISTORY: Very little history is available. There are some family members here. Apparently, she has been reasonably well, living in assisted living. Review of the records also reveals little in the way of additional history. SOCIAL HISTORY: Living in assisted living. Apparently, not a smoker. REVIEW OF SYSTEMS: Difficult to take as she is on BiPAP and I am having some difficulty communicating. Apparently, she did have a fall with ankle injury, but no fracture. She has had some diarrhea, treated with colestipol as mentioned. She is currently somewhat short winded and denies any history of heart disease, renal disease or pulmonary disease. PHYSICAL EXAMINATION: GENERAL: This is an ill-appearing patient, but she is awake and able to answer some questions. She is on BiPAP. SKIN: Otherwise, unremarkable. SKELETAL: Well developed, well nourished. No amputations. HEENT: Extraocular movements are full. There is mild scleral icterus noted. Hearing and vision grossly intact. BiPAP mask is on. NECK: Supple. CHEST: Shows somewhat coarse breath sounds. HEART: Regular. ABDOMEN: Mildly tender in the right upper quadrant only with diminished bowel sounds. EXTREMITIES: Show absolutely no edema. Good peripheral perfusion. Feet and the hands are warm. [facility] [address] [place] [address] CONSULTATION Name: MIGUEL GRANDA Room #: 237-P ADM IN M.R.#: [id number] Admission: 04/06/19 ������������������ Attend Phys: Krishna Suarez Discharge: ������������������ Date of : 38 Report #: [id number] LABORATORY DATA: The hemoglobin is 11.5, white count all the way up to 30,000 with 34% bands, platelets only 62,000. Sodium 134, potassium 5.1, chloride 102, bicarbonate 20. Coags are okay. The bilirubin is 6. The transaminases and alkaline phosphatase are elevated. Lactic acid 2.7. ASSESSMENT: 1. Acute kidney injury. There is a component of multisystem organ failure related to possible cholangitis. She is on appropriate antibiotics. She may well need surgical intervention, but apparently an ERCP will be done first. She is on supportive care. She has gotten 5 liters of fluid, but urine output is somewhat sluggish as mentioned and for completeness, I will be measuring urine sodium and creatinine, continuing her on IV fluids and she may welcome to the need for at least temporary dialysis. 2. Cholecystitis with choledocholithiasis. The worry is for cholangitis, particularly bacterial cholangitis. 3. History of hypothyroidism. 4. History of diarrhea on colestipol. 5. History of dyslipidemia, on simvastatin. ��������������������������������������������� <ELECTRONICALLY SIGNED> ���������������������������������������� By: Reilly Slaughter MD ��������������������������������������������� 04/14/19 1127 [id number] Reilly Slaughter MD /nt
--- NOTE | 2019-04-14 12:59 | NUR ---
DELIA reviewed chart and spoke with nursing and attending physician. Pt was extubated over the weekend and is slowly progressing. 5N consult ordered to evaluate pt for possible admission to inpt acute rehab. DELIA left voice message for pt's son, Aron ([phone]) to further discuss discharge plans. 5N v. [facility]. DELIA is following to assist as needed with discharge planning.
--- NOTE | 2019-04-14 15:02 | NUR ---
PATIENT ADMITTED TO ROOM AT THIS TIME. SHE IS VERY SLEEPY. WILL BARELY STAY AWAKE TO TAKE BREATHING TREATMENT. RESPIRATIONS ARE NON LABORED. WILL CONT WITH PLAN OF CAR.
--- NOTE | 2019-04-14 15:05 | NUR ---
PATIENT ASSESSMENTS AND VITAL SIGNS DOCUMENTED. SHE WAS TRANSFERED TO [facility]. REPORT GIVEN TO JONNIE RIGGS FOR CONTINUATION OF CARE. NURSE NOTIFIED FAMILY, JUAN, OF ROOM NUMBER AND ROOM PHONE NUMBER. PLAN OF CARE IS TO INCREASE STRENGTH AND ENDURANCE. SHE WAS ABLE TO FEED HERSELF, IT TOOK TIME, HOWEVER, SHE WAS ABLE TO FEED HERSELF.
[2019-04-15 04:45] VITALS: BP 139/71
--- NOTE | 2019-04-15 05:32 | NUR ---
Patient ALOx4 with slow response and forgetfulness. No acute changes overnight. Patient states she feels like she has been breathing fine. Lungs remain clear to auscultation. Drain on right upper abdomen intact. Fung remains present. Q2H turns when patient allows. Patient has been occassionally refusing to be turned due to sleeping well and feeling comfortable in bed. Patient remains weak and appears to need some work with phyical therapy. Patient dc'd right IJ triple lumen without warning; patient stated she did this because it was uncomfortable and bothering her. Minimal bleeding noted from site. Fall precautions in place. Progress toward plan of care at this time.
[2019-04-15 07:45] VITALS: BP 146/74
--- NOTE | 2019-04-15 08:15 | NUR ---
PATIENT SEEN BY DR. SCHULTE FOR ACUTE REHAB CONSULT. PATIENT DOES HAVE FUNCTIONAL DEFICITS AND QUALIFIYING REHAB DIAGNOSIS. WILL CONTINUE TO FOLLOW AND SEE HOW PATIENT PROGRESSES IN THERAPY. WILL ATTEMPT AUTH WHEM PATIENT IS STABLE, IF APPROPRIATE FOR REHAB ADMISSION AT THAT TIME AND IF BED IS AVAILABLE.
[2019-04-15 11:23] VITALS: BP 143/67
[2019-04-15 12:13] LABS: HEMATOCRIT 38.7 % (37.0-47.0); HEMOGLOBIN 12.9 gm/dL (12.0-15.0); MCH 30.8 pg (26.0-34.0); MCHC 33.4 g/dL (28.0-37.0); MCV 92.3 fL (80.0-100.0); RBC 4.2 mil/uL (4.20-5.00); RDW 14.9 % (10.5-14.5); WBC 14.4 thou/uL (4.0-11.0)
[2019-04-15 12:21] LABS: ALBUMIN 1.8 g/dL (3.4-5.0); CALCIUM 8.2 mg/dL (8.5-10.1); CREATININE 2.3 mg/dL (0.6-1.0); PHOSPHORUS 4.8 mg/dL (2.5-4.9); POTASSIUM 4.6 mmol/L (3.5-5.1)
--- NOTE | 2019-04-15 13:09 | NUR ---
DELIA reviewed chart and spoke with nursing and attending physician. Pt is progressing towards goals for discharge. rehab physician did evaluate pt and is following for admission to in acute rehab pending insurance authorization. DELIA met with pt and son, Aron, at bedside, to discuss discharge plan. Pt and son are agreeable with if insurance will authorize. Pt lives at [facility] and would be agreeable with referral to [facility] if is not authorized. DELIA discussed case with regional rehabilitation director. Authorization to be requested for [facility] acute rehab. DELIA is following to assist as needed with discharge planning.
--- NOTE | 2019-04-15 15:01 | NUR ---
REQUEST FOR ACUTE REHAB AUTHORIZATION INITIATED THIS DATE. PENDING AUTH NUMBER IS [id number]. PATIENT HAS ACUTE REHAB BENEFIT. THERE A $290.00 CO-PAY PER DAY AND A MAX CO-PAY OF $1450.00 WITH MAX OOP OF $6200.00. ETHEL AT [facility] CALLED AT AND MESSAGE LEFT INFORMING THAT REQUEST FOR AUTH HAD BEEN MADE AND WAS GIVEN THE LANDING WORKER NUMBER FOR CALL BACK OR QUESTIONS.
[2019-04-15 15:33] VITALS: BP 135/69
--- NOTE | 2019-04-15 16:00 | NUR ---
PT RESTING IN BED WATCHING TV. SON WAS HERE EARLIER. PT SAT ON EDGE OF BED WITH THERAPY. ATE 100 % OF BREAKFAST AFTER SETUP AND HAS BEEN DRINKING FLUIDS. ATE 50% LUNCH. CONT ON IV ABT'S.
[2019-04-15 19:44] VITALS: BP 134/68
--- NOTE | 2019-04-16 03:38 | NUR ---
No acute changes overnight. Biliary drain intact with green fluid. Q2h turns completed. Patient is still weak and moves slow. Patient has slept soundly most of shift. No reports of pain, nausea or vomiting. Lung sounds remain clear while patient on room air. Slow progress toward plan of care at this time.
[2019-04-16 04:26] VITALS: BP 157/74
[2019-04-16 06:08] LABS: ALBUMIN 1.7 g/dL (3.4-5.0); CALCIUM 7.8 mg/dL (8.5-10.1); PHOSPHORUS 4.9 mg/dL (2.5-4.9); POTASSIUM 4.7 mmol/L (3.5-5.1)
[2019-04-16 07:39] VITALS: BP 138/69
--- NOTE | 2019-04-16 08:23 | P ---
[facility] [place] [address] [place] [address] PROCEDURE REPORT Name: MIGUEL GRANDA Room #: 354-P ADM IN M.R.#: [id number] Admission: 04/06/19 ������������������ Attend Phys: Krishna Suarez Discharge: ������������������ Date of : 38 Report #: [id number] THIS REPORT FOR: //name// CC: Krishna Zamora MD DATE OF SERVICE: 04/07/2019 PROCEDURE PERFORMED: ERCP with sphincterotomy and stone removal. HISTORY OF PRESENT ILLNESS: The patient is an 78-year-old female with recent complaints of generalized fatigue and fever, was evaluated at [facility] and was noted to have elevated liver function test. A CT scan of the abdomen and pelvis was performed, which showed significant intrahepatic and extrahepatic biliary dilation. Several stones were noted downstream in the bile duct; largest one approximately 1 cm in size. Distended gallbladder with calcified stones and wall thickening, mild stranding of the adjacent fat. The pancreas was atrophic. The patient's white count yesterday at [facility] was normal; however, today, it is 30,000. She was febrile at [facility] reportedly. Her total bilirubin today is 6.4, lipase 23, AST 135, alkaline phosphatase 206 and ALT 111. Lactic acid level today is 2.1. Hemoglobin 11.5 and platelet count is 62,000. Concern for ascending cholangitis, the patient was started on Zosyn. She was also given meropenem earlier as well as Flagyl. Prior to the procedure, the patient was in the ICU. Earlier today, she was requiring pressure support, but this had improved. She is, however, on BiPAP. Plan is for ERCP. DESCRIPTION OF PROCEDURE: The risks and benefits of the procedure were explained to the patient and her family. Those risks including, but not limited to bleeding, perforation, the risk of sedation as well as the potential for post-ERCP pancreatitis. They understood these risks and gave informed consent. The procedure was performed in the operating room under general anesthesia. Again, the patient is already on IV antibiotics, as described above and 50 mg indomethacin rectal suppository was given prior to the procedure as well. Next, using a standard Olympus side-viewing ERCP scope, the scope was placed in the patient's mouth and advanced under direct vision through the esophagus, stomach and into the second portion of the duodenum. The major papilla was identified and grossly abnormal. It was very large in size and appeared to be under pressure. There was no drainage. There appeared to be a stone right at the opening. Again, this was very swollen and edematous. There also was a small diverticulum adjacent to the papilla that appeared to have some purulent [address] [address] PROCEDURE REPORT Name: MIGUEL GRANDA Room #: 354-P ADM IN M.R.#: [id number] Admission: 04/06/19 ������������������ Attend Phys: Krishna Suarez Discharge: ������������������ Date of : 38 Report #: [id number] material in it. At this point, using a Asael-Zumbox 0.025 dome-tipped catheter, the common bile duct was cannulated with ease and a large amount of bile mixed with pus was evacuated immediately just with entering the catheter. I was able to advance the catheter up into the common duct without any difficulty and then a cholangiogram was obtained. Wire was passed up into the intrahepatic ducts. The intrahepatic and common bile duct were dilated throughout to approximately 1.2 cm of the common bile duct. A large amount of bile was draining at this point as well as purulent material. An obvious filling defect was noted in the distal common bile duct, consistent with a stone. Moderate amount of debris was also seen. At this point, I performed a large sphincterotomy. Again, further bile and debris exited the bile duct after sphincterotomy. At this point, the sphincterotome was removed, leaving the guidewire in place. Next, a balloon catheter was advanced over the guidewire and balloon sweeps were performed. A large stone was removed initially. I then performed several more passes, balloon sweeps and no further stones, but a large amount of debris and sludge as well as pus was evacuated from the common bile duct. At this point, a balloon occlusion cholangiogram was obtained and no further filling defects were noted. Of note, the diverticulum had dye in it. It is difficult to assess whether there may be a fistula communication to the diverticulum from the distal common bile duct, as there was purulent material noted before cannulization or if this just filled retrograde once the dye exited the bile duct. At this point, good drainage was noted. The wire and the balloon were removed. The scope was then withdrawn and the procedure terminated. The patient tolerated the procedure well. IMPRESSION: 1. Cholangitis, status post ERCP with significant bile and purulent material removed, including one large stone and a large amount of debris, as described above. 2. 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 3. Dilated common bile duct as well as intrahepatic ducts. RECOMMENDATIONS: 1. Continue IV antibiotics and supportive care. 2. We will monitor liver function tests closely. 3. At some point, the patient will need a laparoscopic cholecystectomy. Thank you for allowing me to participate in her care. ��������������������������������������������� <ELECTRONICALLY SIGNED> ���������������������������������������� By: Israel Lovell MD ��������������������������������������������� 04/16/19 0823 [id number] Israel Lovell MD /nt
--- NOTE | 2019-04-16 10:44 | NUR ---
DISCHARGE PLANNING. POST ACUTE RECOMMENDED AT DISCHARGE. 5N EVALUATED AND HAS SUBMITTED FOR INSURANCE AUTH. REFERRAL FAXED TO [facility] ADMISSIONS PLAN B. CALL PLACED TO ERICA CHARLES ADMISSIONS TO NOTIFY. FOLLOWING TO ASSIST WITH DISCHARGE NEEDS.
--- NOTE | 2019-04-16 10:51 | NUR ---
This morning OT noted that pt seemed to be a little off of baseline with wandering eye and slight one-sided weakness. Daughter phoned and mentioned that she felt something was off with her mom last night. She noted that she was able to feed herself adequately yesterday at lunch but by dinner last night the daughter noticed that the pt would get a bit on her utensil but would get lost in the moment as if she can't remember what she is supposed to do. Upon my assessment this morning the pt is A&Ox4, is able to follow commands. Left eye does appear to be slower to react and wanders at times. Slight weakness in left sided roller checker strength. Bilateral drift d/t generalized weakness. No other notable facial droop or changes. Brief NIHSS doumented. Dr. Ibrahim was paged and came to evaluate pt. ST ordered as well as medication DC. Will continue to monitor and assess, and will update physician as needed.
[2019-04-16 11:11] VITALS: BP 144/64
--- NOTE | 2019-04-16 11:58 | HC ---
[facility] [place] [address] [place] [address] CONSULTATION Name: MIGUEL GRANDA Room #: 354-P ADM IN M.R.#: [id number] Admission: 04/06/19 ������������������ Attend Phys: Krishna Suarez Discharge: ������������������ Date of : 38 Report #: [id number] THIS REPORT FOR: //name// CC: FAM unknown Krishna Lopez HISTORY OF PRESENT ILLNESS: This 78-year-old white female who was transferred from [facility] and has been found to have cholecystitis along with choledocholithiasis and biliary obstruction. She has been intubated, is on a ventilator and has been sedated, so history is obtained from her medical record. She evidently lives in a [facility] and developed fever, chills and shortness of breath with diminished responsiveness. She was hypotensive and has remained on vasopressors while here at [facility]. I have been asked to see her in consultation regarding an abnormal hemogram. PAST MEDICAL HISTORY: Significant for known prior diverticulitis, medically managed, hypertension as well as shingles. MEDICATIONS: Noted as in the MFR. ALLERGIES: She has allergies to no known medications. REVIEW OF SYSTEMS: Not obtainable. FAMILY HISTORY: Not contributory. SOCIAL HISTORY: She is a nondrinker, nonsmoker. PHYSICAL EXAMINATION: GENERAL: Shows her to be sedated. HEENT: Normocephalic. Mouth shows endotracheal tube. NECK: Supple. CHEST: Clear. CARDIOVASCULAR: Normal S1, S2. ABDOMEN: Soft. SKIN: Shows jaundice. EXTREMITIES: Show no clubbing, cyanosis, edema. NEUROLOGIC: She is sedated. LABORATORY DATA: Laboratory studies have been concerning because of a persistent leukocytosis and thrombocytopenia. Her white count was 36,500, hematocrit 37.3, and a platelet count of 39,000. I was able to obtain a CBC from her long-term care facility that showed a white count of 9900, hemoglobin [facility] [address] [place] [address] CONSULTATION Name: MIGUEL GRANDA Room #: 354-P ADM IN M.R.#: [id number] Admission: 04/06/19 ������������������ Attend Phys: Krishna Suarez Discharge: ������������������ Date of : 38 Report #: [id number] 13.5 grams and a platelet count of 383,000 on the 01/14/2019. ASSESSMENT AND PLAN: Thrombocytopenia and leukocytosis related to current sepsis with shock and lactic acidosis from her cholelithiasis and obstruction. PLAN: ID was concerned that her white count was not coming down, but I do not believe she has an underlying hematologic disorder with her normal CBC from 2-1/2 months ago. I believe that the both leukocytosis and thrombocytopenia are reactive and related to her current medical condition. She does not have evidence of DIC. She is not actively bleeding or need of a platelet transfusion. I would continue to monitor her and again we can recheck her coags in a few days because of her ongoing antibiotic therapy. Thanks for asking us to be involved in her care. ��������������������������������������������� <ELECTRONICALLY SIGNED> ���������������������������������������� By: Margaret Chavira MD ��������������������������������������������� 04/16/19 1158 [id number] Margaret Chavira MD /nt
--- NOTE | 2019-04-16 12:22 | NUR ---
SW reviewed chart and spoke with nursing and attending physician. Pt is progressing towards goals for discharge. SW notified by 5N rehabilitator that insurance has denied authorization for inpt acute rehab. Option for peer to peer provided and given to attending physician by 5N rehabilitator. [facility] is able to accept pt if insurance upholds the inpt acute rehab denial. DELIA is following to assist as needed with discharge planning.
--- NOTE | 2019-04-16 13:08 | NUR ---
REHAB ADMISSIONS NOTE: RECEIVED UPDATE FROM ETHEL AT [facility] ([phone]) THAT PATIENT HAS BEEN DENIED FOR ACUTE REHAB. INFORMATION FOR PEER TO PEER, WHICH CAN BE COMPLETED BY CALLING [phone] BEFORE 16:30 TODAY, WAS COMMUNICATED TO ATTENDING PHYSICIAN AND REHAB PHYSICIAN. AUTH #[id number]. BOTH PROVIDERS RECOMMEND PURSUING SNF PLACEMENT MORE APPROPRIATE OPTION FOR PATIENT DUE TO PATIENT'S CURRENT LOW LEVEL OF FUNCTION. UPDATE FROM PROVIDERS COMMUNICATED TO ANGELINA GREENE WITH REGARDS TO PURSUING SNF. THANK YOU FOR THIS REFERRAL TO [facility]
[2019-04-16 16:25] VITALS: BP 149/67
[2019-04-16 20:16] VITALS: BP 132/70
--- NOTE | 2019-04-17 04:18 | NUR ---
Patient much more alert and less slow to response than the last two nights. Patient still on room air. Biliary drain intact. Q2H turns completed. Patient still very weak. Slow progress toward plan of care.
[2019-04-17 04:43] VITALS: BP 152/67
[2019-04-17 05:33] LABS: HEMATOCRIT 31.3 % (37.0-47.0); MCH 31.3 pg (26.0-34.0); MCHC 33.6 g/dL (28.0-37.0); MCV 93.2 fL (80.0-100.0); PLATELET COUNT 251 thou/uL (150-400); RBC 3.36 mil/uL (4.20-5.00); RDW 14.6 % (10.5-14.5); WBC 11.7 thou/uL (4.0-11.0)
[2019-04-17 05:39] LABS: HEMOGLOBIN 10.5 gm/dL (12.0-15.0)
[2019-04-17 06:31] LABS: ABSOLUTE NEUTROPHILS 8.2 thou/uL (1.4-8.2)
[2019-04-17 06:32] LABS: PLATELET ESTIMATE NORMAL; POIKILOCYTOSIS 1+
[2019-04-17 07:10] VITALS: BP 143/61
--- NOTE | 2019-04-17 10:42 | NUR ---
DELIA reviewed chart and spoke with nursing. Peer to peer was not completed yesterday, as physicians feel she is too low level for inpt acute rehab. DELIA spoke with pt's son/DPOA, Aron, via phone to provide update and discuss recommendation for SNF level of care at [facility]. Pt's son is agreeable with plan. service planner updated [facility], who will submit for insurance authorization. DELIA is following to assist as needed with discharge planning.
[2019-04-17 10:51] VITALS: BP 129/67
[2019-04-17 16:04] VITALS: BP 153/65
[2019-04-17 19:45] VITALS: BP 158/75
--- NOTE | 2019-04-17 19:50 | NUR ---
ASSUMED CARE OF PT AT 0700. ASSESSMENT CHARTED. DENIES PAIN. SKIN REDNESS AND IRRITATION NOTED. PT VERY WEAK, BUT ABLE TO FEED SELF. BLANCO IN PLACE. CALLS APPROPRIATELY. PROGRESSING TOWARDS GOALS.
--- NOTE | 2019-04-18 01:49 | NUR ---
PATIENT IS ALERT AND OREIENTED SOMETIMES FORGETFUL. PATIENT IS NSR ON TELE. PATIENT IS PIVIOT TRANSFER DUE TO WEAKNESS. PENDING DC TO SNIF TO IMPROVE STRENGTH. PATIENT HAS A ARPAN DRAIN AND IS ON A LOW FAT DIET. PENDING POSSIBLE SURGERY OUTPT. PATIENT HAS A BLANCO. ENCOURAGE BSC. PATIENT HAS A RASH UNSURE OF SOURCE PROVIDER AWARE BENADRYL ORDERED MONITOR FOR FURTHER REACTION TO DETERMINE SOURCE. PATEINT IS RESTING COMFORTABLY IN BED. DENIES PAIN. PATIENT IS PROGRESSING TO GOALS. WCM.
[2019-04-18 04:24] VITALS: BP 170/74
[2019-04-18 05:17] LABS: HEMATOCRIT 32.7 % (37.0-47.0); MCH 31.3 pg (26.0-34.0); MCHC 33.5 g/dL (28.0-37.0); MCV 93.3 fL (80.0-100.0); RBC 3.51 mil/uL (4.20-5.00); RDW 14.7 % (10.5-14.5); WBC 9.4 thou/uL (4.0-11.0)
[2019-04-18 05:39] LABS: ALBUMIN 1.9 g/dL (3.4-5.0); CALCIUM 8.8 mg/dL (8.5-10.1); CREATININE 1.6 mg/dL (0.6-1.0); PHOSPHORUS 4.2 mg/dL (2.5-4.9); POTASSIUM 4.3 mmol/L (3.5-5.1)
[2019-04-18 07:15] VITALS: BP 156/81
[2019-04-18 11:35] VITALS: BP 155/67
[2019-04-18] MEDS ORDERED: BANOPHEN25 M1 PO (13:54)
[2019-04-18] MEDS ORDERED: DEMADEX20 MG PO (13:54)
[2019-04-18] MEDS ORDERED: LEVAQUIN 500 M500 M1 PO (13:54)
[2019-04-18] MEDS ORDERED: ENOXAPARIN30 MG/0.1 SUBQ (13:54)
[2019-04-18] MEDS ORDERED: PROTONIX 20 MG20 M1 PO (13:54)
[2019-04-18] MEDS ORDERED: IPRAT-ALBUT 0.5-3 ML INH (13:54)
--- NOTE | 2019-04-18 13:58 | NUR ---
DISCHARGE NOTE: DELIA reviewed chart and spoke with nursing and attending physician. Pt is medically stable for discharge to [facility] today. Pt has been cleared by nephrology and ID. [facility] does have insurance authorization. maintenance planner to coordinate. Chart copy ordered. Pt will need stretcher van transportation. Nursing to call report. SW is available to assist should needs arise.
[2019-04-18 18:19] VITALS: BP 149/70
--- NOTE | 2019-04-18 19:43 | NUR ---
care of pt assumed this am @ ~0700. pt noted to be soft spoken and very polite. pt denied co pain, no n/v/d today and no soa. pt noted to have a rash scattered about her body, concentrated mainly to her back, neck, ble and her betito area. pt co of the rash causing her some irritation and itching, benadryl given. antibx changed today by zenia. pt seen by ot today, but not by pt. pt is in need of meal set up but able to feed herself. pt to dc to [facility] via [employer] in stretch. report called to [facility] @ 1237. iv access, enriquez and tele dc'd early evening. 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 pt in good spirits upon discharging unit.
== END 2019-04-18 19:08 | DRG 870 ==
LOC: 2N 14:41 → ICU 17:48 → 3W 04-14 14:41
PROVIDERS: Internal Medicine; Internal Medicine Nephrology; Nurse Practitioner Acute Care; Pediatrics; Specialist; ADMIT Hospitalist
PROC: 5A09357 Assistance with Respiratory Ventilation, Less than 24 Consecutive Hours, Continuous Positive Airway Pressure (ICD-10-PCS; principal; 2019-04-06)
PROC: 0FC98ZZ Extirpation of Matter from Common Bile Duct, Via Natural or Artificial Opening Endoscopic (ICD-10-PCS; 2019-04-07)
PROC: 0BH17EZ Insertion of Endotracheal Airway into Trachea, Via Natural or Artificial Opening (ICD-10-PCS; 2019-04-07)
PROC: 5A1955Z Respiratory Ventilation, Greater than 96 Consecutive Hours (ICD-10-PCS; 2019-04-07)
PROC: 02HV33Z Insertion of Infusion Device into Superior Vena Cava, Percutaneous Approach (ICD-10-PCS; 2019-04-08)
PROC: B548ZZA Ultrasonography of Superior Vena Cava, Guidance (ICD-10-PCS; 2019-04-08)
PROC: 5A1D70Z Performance of Urinary Filtration, Intermittent, Less than 6 Hours Per Day (ICD-10-PCS; 2019-04-08)
PROC: B5181ZA Fluoroscopy of Superior Vena Cava using Low Osmolar Contrast, Guidance (ICD-10-PCS; 2019-04-08)
PROC: 5A1D70Z Performance of Urinary Filtration, Intermittent, Less than 6 Hours Per Day (ICD-10-PCS; 2019-04-09)
PROC: 5A1D70Z Performance of Urinary Filtration, Intermittent, Less than 6 Hours Per Day (ICD-10-PCS; 2019-04-10)
PROC: 0F943ZZ Drainage of Gallbladder, Percutaneous Approach (ICD-10-PCS; 2019-04-10)
PROC: 5A1D70Z Performance of Urinary Filtration, Intermittent, Less than 6 Hours Per Day (ICD-10-PCS; 2019-04-11)
PROC: 5A1D70Z Performance of Urinary Filtration, Intermittent, Less than 6 Hours Per Day (ICD-10-PCS; 2019-04-12)
DX: A41.50 Gram-negative sepsis, unspecified (principal); R65.21 Severe sepsis with septic shock; G92 Toxic encephalopathy; J96.01 Acute respiratory failure with hypoxia; N17.0 Acute kidney failure with tubular necrosis; E43 Unspecified severe protein-calorie malnutrition; J18.9 Pneumonia, unspecified organism; M62.82 Rhabdomyolysis; K80.43 Calculus of bile duct with acute cholecystitis with obstruction; E87.1 Hypo-osmolality and hyponatremia; J91.8 Pleural effusion in other conditions classified elsewhere; E03.9 Hypothyroidism, unspecified; E78.5 Hyperlipidemia, unspecified; D69.6 Thrombocytopenia, unspecified; D64.9 Anemia, unspecified; I12.9 Hypertensive chronic kidney disease with stage 1 through stage 4 chronic kidney disease, or unspecified chronic kidney disease; N18.9 Chronic kidney disease, unspecified; R74.0 Nonspecific elevation of levels of transaminase and lactic acid dehydrogenase [LDH]; I95.9 Hypotension, unspecified; L25.1 Unspecified contact dermatitis due to drugs in contact with skin; K57.30 Diverticulosis of large intestine without perforation or abscess without bleeding; Z90.49 Acquired absence of other specified parts of digestive tract; Z68.32 Body mass index [BMI] 32.0-32.9, adult; Z79.899 Other long term (current) drug therapy; T36.1X5A Adverse effect of cephalosporins and other beta-lactam antibiotics, initial encounter; L27.0 Generalized skin eruption due to drugs and medicaments taken internally; Y92.239 Unspecified place in hospital as the place of occurrence of the external cause
CPT/HCPCS: 10078; 10203; 10879; 32100; 62110; 62900; 83006

== ENCOUNTER 2019-05-14 05:46 | Observation (INO) | payer OTHER ==
[~2019-05-14] VITALS: Ht 152.4 cm; Wt 66.7 kg
--- NOTE | ~2019-05-14 | O ---
[facility] [place] [address] OPERATIVE REPORT Name: MIGUEL GRANDA Room #: 150-6 [facility] M.R.#: [id number] Admission: 05/14/19 ������������������ Attend Phys: Kodi Vazquez MD Discharge: ������������������ Date of : 38 Report #: [id number] THIS REPORT FOR: //name// CC: FAM unknown Kodi Vazquez DATE OF SERVICE: 05/14/2019 PREOPERATIVE DIAGNOSIS: Symptomatic cholelithiasis. POSTOPERATIVE DIAGNOSIS: Symptomatic cholelithiasis. OPERATIVE PROCEDURE DONE: Laparoscopic cholecystectomy. OPERATING SURGEON: Kodi Vazquez MD INDICATIONS FOR THE PROCEDURE: The patient is an 78-year-old female who presented with features of acute cholecystitis, cholangitis and septic shock few weeks ago and was admitted in the hospital for a prolonged period of time. Of note, the patient had a cholecystostomy tube placed at the same time as well and the tube was removed last week. The patient was advised laparoscopic cholecystectomy. The patient showed understanding and agreed to proceed. DESCRIPTION OF PROCEDURE: After explaining to the patient in detail and informed consent was obtained, the patient was identified in the preoperative holding area. The patient was transferred to the operating room and was placed in supine position. Sequential compression devices were placed for DVT prophylaxis. Preoperative antibiotics were given. After induction of general anesthesia, the abdomen was prepped and draped in a sterile fashion. Through a right upper quadrant, 1 cm incision using Optiview technique, peritoneal cavity was entered and a pneumoperitoneum was created. Thereafter, under direct vision, another 5 mm trocar was placed through a supraumbilical incision, another 5 mm trocar was placed in the epigastrium and one in the right lateral subcostal region. Upon initial inspection, the gallbladder was retracted and the peritoneal along the level of the neck of the gallbladder was gently dissected off. Cystic duct was identified and isolated from the surrounding structures. Cystic artery was identified and isolated from the surrounding structures. Cystic duct was then double clipped proximally and single clip applied distally and was then divided. Cystic artery also was then divided in a similar fashion. The gallbladder was gently dissected off the liver bed using hook electrocautery. Absolute hemostasis was achieved. Thorough saline irrigation was given. The gallbladder was gently dissected off, was retrieved using an EndoCatch through the lateral most incision. Incisions were then closed with 4-0 Monocryl. Dermabond was applied. The patient was stable at the end of the procedure. The patient was awoken from anesthesia and was transferred to the recovery room in stable condition. [address] [address] OPERATIVE REPORT Name: MIGUEL GRANDA Room #: 150-6 [facility] [place] M..#: [id number] Admission: 05/14/19 ������������������ Attend Phys: Kodi Vazquez MD Discharge: ������������������ Date of : 38 Report #: [id number] ESTIMATED BLOOD LOSS: Minimal. CONDITION OF THE PATIENT: Stable. FLUIDS GIVEN: Per anesthesia. SPECIMEN SENT: Gallbladder. COMPLICATIONS: None. ANESTHESIA: General anesthesia. ��������������������������������������������� ���������������������������������������� By: ��������������������������������������������� 1500 1526 Kodi Vazquez MD /bi
[~2019-05-14 05:46] MED LIST: ACYCLOVIR 400400 MG PO; BANOPHEN25 M1 PO; BETIMOL5 ML OPHTHALMIC; COLESTID1 GM PO; DEMADEX20 MG PO; ENOXAPARIN30 MG/0.1 SUBQ; ENSURE ORIGINA237 ML PO; IPRAT-ALBUT 0.5-3 ML INH; LEVAQUIN 500 M500 M1 PO; MELATONIN3 MG PO; PROTONIX 20 MG20 M1 PO; PULMICORT0.5 MG/22; SIMVASTATIN40 MG PO; SYNTHROID50 MCG PO; XARELTO10 MG PO
[2019-05-14 12:20] VITALS: BP 158/70
[2019-05-14] MEDS ORDERED: NORCO 5-325 TA1 EAC1 PO (14:42)
[2019-05-14 15:33] VITALS: BP 158/70
[2019-05-14 19:39] VITALS: BP 140/69
[2019-05-14 23:27] VITALS: BP 115/52
[2019-05-15 04:12] VITALS: BP 125/62
[2019-05-15 07:45] VITALS: BP 117/51
[2019-05-15 09:54] VITALS: BP 158/70
--- NOTE | 2019-05-15 14:04 | NUR ---
DELIA reviewed chart and spoke with nursing. Pt came in yesterday for juan m pachecoe per surgery. Pt has discharge orders to return to [facility] today. [facility] liaison met with pt and son at bedside. Pt is from the Assisted Living at [facility] and will return to her apt later today. Pt's son at bedside will provide transportation back to [facility]. SW faxed info and discharge orders to [facility]. Nursing will need to call report to [phone] prior to discharge. No SW needs identified at this time, but is available to assist should needs arise.
--- NOTE | 2019-05-15 20:28 | NUR ---
PATIENT A&OX4, VSS, PAIN RIGHT SIDE OF ABDOMEN, PAIN MEDICATION GIVEN. LAP SITES HAVE DURABOND, C/D/I. PATIENT HAS NO SIGNS OF DISTRESS. DISCHARGED HOME WITH SON WHO TOOK HER BACK TO [facility]. DISCHARGE PAPERWORK UNDERSTOOD AND SIGNED.
--- NOTE | 2019-05-16 16:06 | PATH ---
[facility] [address] [place] [address] PATHOLOGY RPT PROCEDURE Name: MIGUEL PEREZ ANN Room #: 454-P [facility] Carmen M.R.#: [id number] ������������������ Admission: 05/14/19 ������������������ Date of : 38 Discharge: 05/15/19 Report #: [id number] Path Case #: [id number] [facility] Accession Number: [id number] . 01 Material submitted: . gallbladder - GALLBLADDER . 01 Clinical history: . Acute cholecystitis . 02 Diagnosis: Gallbladder, cholecystectomy: - Mild chronic cholecystitis. - Cholelithiasis. (IUV:reema; 05/16/2019) QMS/05/16/2019 . 02 Electronically signed: . Loulou Jacobson MD, Pathologist NPI- [id number] . 01 Gross description: . Received in formalin labeled "Miguel Perez, gallbladder," is a partially disrupted gallbladder measuring 7.7 x 3.4 x 2.5 cm in greatest dimensions. The serosal surface is wrinkled to shaggy, pale pink-washington to dusky nunes-washington and partially adipose-covered in appearance. A defect is noted in the hepatic surface, measuring 2.0 x 1.4 cm and extending to within 3.0 cm of the infundibulum. Opening the specimen reveals a granular, dark washington-brown mucosa measuring 0.1 cm in thickness, with a gallbladder wall thickness of up to 0.6 cm. No polyps or nodules are noted grossly. Calculi are present within the specimen are black and granular in appearance, ranging from 0.4 to 3.2 cm in maximum dimension. Web Operations Lead sections of the infundibulum, body and fundus are submitted in cassette A1, to representatively include the hepatic surface defect. (DAC; 05/15/2019) XDC/XDC . 02 Pathologist provided ICD-10: K80.10 . 02 CPT . 381095 Specimen Comment: A courtesy copy of this report has been sent to Specimen Comment: [phone]. Specimen Comment: Report sent to Performed at: 01 [place] [address] PATHOLOGY RPT PROCEDURE Name: MIGUEL PEREZ ANN Room #: 454-P RUTHY Barth#: [id number] ������������������ Admission: 05/14/19 ������������������ Date of : 38 Discharge: 05/15/19 Report #: [id number] Path Case #: [id number] [address] [facility] [address], [place] [id number] MD Jeremy Lara MD Phone: [phone] Performed at: [address] [id number] MD Loulou Jacobson MD Phone: [phone]
== END 2019-05-15 18:30 | disposition home or self-care (01) ==
LOC: TBA 05:46 → OR 05:46 → TBA 06:02 → OR 09:43 → 4W 19:29 → OR 19:30 → 4W 19:30 → ENTRNSPT 05-15 13:40 → EDTRNSPTSTS 05-15 13:42 → 4W 05-15 18:30
PROVIDERS: ADMIT Surgery
DX: K80.20 Calculus of gallbladder without cholecystitis without obstruction (principal)
CPT/HCPCS: 10047; 50010; 50101; 50411; 50555; 51489; 52266; 54022; 54118; 55245; 56462; 56525; 56526; 57257; 62110; 62900; 70005

== ENCOUNTER 2021-10-17 13:04 | Inpatient (IN) | payer OTHER ==
[~2021-10-17] VITALS: Ht 152.4 cm; Wt 72.6 kg
--- NOTE | ~2021-10-17 | O ---
[facility] [place] [address] OPERATIVE REPORT Name: MIGUEL GRANDA Room #: 439-P ADM IN M.R.#: [id number] Admission: 10/17/21 Attend Phys: Pareshjesse Jiménez Isaurademarco Discharge: Date of : 38 Report #: [id number] THIS REPORT FOR: cc: SEB PRADO Physician not on staff Cale Sue MD ~ DATE OF SERVICE: 10/19/2021 PREOPERATIVE DIAGNOSIS: Right facial abscess. POSTOPERATIVE DIAGNOSIS: Right facial abscess. OPERATION: Incision and drainage of right facial abscess. SURGEON: Cale Sue MD ANESTHESIA: General. ESTIMATED BLOOD LOSS: Minimal. SPECIMENS: Fluid for culture and sensitivity. DESCRIPTION OF PROCEDURE: After informed consent was obtained, the patient was brought to the operating room and placed supine. SCDs were placed and working and general anesthesia was induced. The right face was prepped and draped in the usual sterile fashion. I began by making a 1 cm incision over the abscess. Pus was expressed. Loculations were broken up with a clamp. The pus was cultured. The area was then irrigated copiously with normal saline and packed with sterile gauze. Sterile dressings were applied. COMPLICATIONS: None. DISPOSITION: The patient was taken to recovery in a satisfactory condition. By: 1345 1501 Cale Sue MD /nt
[~2021-10-17 13:04] MED LIST changes: +NORCO 5-325 TA1 EAC1 PO
[2021-10-17 13:05] VITALS: BP 152/63
[2021-10-17 13:58] LABS: ABSOLUTE NEUTROPHILS 6.5 thou/uL (1.4-8.2); BASOPHILS 0.9 % (0.0-2.0); EOSINOPHILS 0.9 % (0.0-3.0); HEMOGLOBIN 13.6 gm/dL (12.0-15.0); LYMPHOCYTES 17.5 % (24.0-44.0); MCH 31.4 pg (26.0-34.0); MCHC 33.9 g/dL (28.0-37.0); MCV 92.5 fL (80.0-100.0); MONOCYTES 16.4 % (1.0-8.0); PLATELET COUNT 242 thou/uL (150-400); POLYS 64.3 % (36.0-66.0); RBC 4.33 mil/uL (4.20-5.00); RDW 14.3 % (10.5-14.5); WBC 10.1 thou/uL (4.0-11.0)
[2021-10-17 14:04] LABS: CREATININE 0.6 mg/dL (0.6-1.0); POTASSIUM 3.6 mmol/L (3.5-5.1)
[2021-10-17 14:10] LABS: ALBUMIN 3.7 g/dL (3.4-5.0); TOTAL BILIRUBIN 0.5 mg/dL (0.2-1.0); TOTAL PROTEIN 7.8 g/dL (6.4-8.2)
[2021-10-17 16:48] LABS: URINE BILIRUBIN NEGATIVE (Negative); URINE BLOOD 2+ (Negative); URINE COLOR YELLOW; URINE GLUCOSE-RANDOM* TRACE (Negative); URINE KETONES 1+ (Negative); URINE NITRITE-REFLEX NEGATIVE (Negative); URINE PROTEIN (DIPSTICK) NEGATIVE (Negative); URINE UROBILINOGEN 0.2 E.U./dl (0.2-1.0)
[2021-10-17 16:49] LABS: URINE CLARITY SL HAZY; URINE LEUKOCYTES-REFLEX 2+ (Negative)
[2021-10-17 16:56] LABS: SQUAMOUS 4-10 Moderate /LPF (0-3); URINE RBC 3-10 Few /HPF (NONE SEEN); URINE WBC-REFLEX 6-15 Few /HPF (0-5)
[2021-10-17 16:57] LABS: CASTS None Seen /LPF (None Seen); CRYSTALS None Seen /LPF (None Seen)
[2021-10-17] MEDS ORDERED: PRAVASTATIN SOD40 MG PO (17:15)
[2021-10-18 09:36] VITALS: BP 156/100
[2021-10-18 17:53] VITALS: BP 152/64
--- NOTE | 2021-10-18 19:17 | NUR ---
SOWMYA GRANDA [facility]- [phone] UPDATED ON POC AND WOULD LIKE TO BE UPDATED TOMORROW
[2021-10-18] MEDS ORDERED: NORVASC5 M1 PO (20:48)
[2021-10-18] MEDS ORDERED: ASA81BEC PO (20:49)
[2021-10-18 21:53] VITALS: BP 138/55
[2021-10-19 03:35] LABS: HEMATOCRIT 38.9 % (37.0-47.0); MCHC 33.5 g/dL (28.0-37.0); MCV 92.6 fL (80.0-100.0); RBC 4.2 mil/uL (4.20-5.00); RDW 14.1 % (10.5-14.5); WBC 8.6 thou/uL (4.0-11.0)
[2021-10-19 05:20] LABS: CALCIUM 9.7 mg/dL (8.5-10.1); CREATININE 0.5 mg/dL (0.6-1.0); POTASSIUM 4.2 mmol/L (3.5-5.1)
--- NOTE | 2021-10-19 08:02 | NUR ---
REPORT GIVEN TO KEELY BASHIR AT THIS TIME. PT TO GO TO PREOP AT 1200. WILL UPDATE PT
[2021-10-19 12:35] VITALS: BP 174/70
[2021-10-19 15:53] VITALS: BP 150/73
[2021-10-19 16:54] VITALS: BP 137/56
--- NOTE | 2021-10-19 17:14 | NUR ---
Pt transferred to unit from PACU. Pt a&ox3-4. Denies pain. Dressing c/d/i. VSS. Call light within reach. Fall precautions in place. Will continue to monitor.
[2021-10-19 19:45] VITALS: BP 121/54
--- NOTE | 2021-10-19 23:19 | NUR ---
ASSESSMENT COMPLETED. PT IS ALERT X3,4.DENIES PAIN. POST OP DRSG TO FACE.ROOM AIR.STARTED ON IV ABTS.PT SLEEPING.REPORT GIVEN TO ONCOMING RN AT 2300HRS.
[2021-10-20 08:00] VITALS: BP 132/51
--- NOTE | 2021-10-20 09:06 | NUR ---
Chart review. DX tan, had an I & D yesterday. On IV ABX. Cm visited with patient at bedside, A & o x 3, pleasant and able to make her needs known. Prior to hospital she lives at [facility] with her 47 year old son lida, who has down syndrome. Right now he is stay with her son enmanuel who can fireworks assembly supervisor while taking care of his brother lida. Enmanuel is my and lida DPOA per oleksandr diaz. Prior to hospital she had a stroke this year 2020. manages her own medication and drives vehicle. 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 Had [employer] for pt and ot in home working with her. she has fww inside her home and walker with seat for outside the home. She reports had falls and sometimes has to call fire dept to pick her up per oleksandr diaz. Ok with going to skilled rehab at [facility] if she needs iv abx, she does not feel comfortable doing home iv abx. Will cont following as needed.
--- NOTE | 2021-10-20 11:10 | NUR ---
harry visited with oleksandr at bedside, skilled referral to be sent to [facility]. IV ABX and will need therapy to evsd as well.
[2021-10-20 11:36] VITALS: BP 118/47
--- NOTE | 2021-10-20 11:44 | NUR ---
A/O X 4. ROOM AIR. ONE ASSIST WITH WALKER. RIGHT AC AND RIGHT HAND IV-DRESSING D/C/I. HAS SURGICAL SITE FROM I/D ON RIGHT CHEEK-GAUZE TO AREA-DRY, CLEAN, BRUISING UNDER RIGHT EYE AND CHEEK-GREEISH, PURPLE. NO PAIN NOTED. 10/19. LEFT EYE DROPS GIVEN. TOLERATING VANCOMYCIN WELL.
[2021-10-20 20:14] VITALS: BP 132/67
--- NOTE | 2021-10-20 22:57 | HC ---
[facility] [place] [address] CONSULTATION Name: MIGUEL GRANDA Room #: 439-P ADM IN M.R.#: [id number] Admission: 10/17/21 Attend Phys: Krishna Suarez Discharge: Date of : 38 Report #: [id number] THIS REPORT FOR: cc: SEB PRADO Physician not on staff Glynn Hayden MD ~ DATE OF SERVICE: 10/19/2021 INFECTIOUS DISEASE CONSULTATION REASON FOR CONSULTATION: I was asked to evaluate concerning right facial abscess. HISTORY OF PRESENT ILLNESS: The patient is an 81-year-old who presents with acute onset of right facial swelling and tenderness. No reported trauma. She noticed this onset 4 days ago with what she thought was a small pimple to the right cheek. She has had no previous history of Staph infections. She has had no history of skin cancer. No diabetes or tobacco use. Due to the increased swelling and pain, she presented to the Emergency Room. Today, she had an incision and drainage procedure. Cultures are pending. Now on vancomycin. REVIEW OF SYSTEMS: A 14-point review is negative other than what has been described above. PAST MEDICAL HISTORY: Tubal ligation, colonoscopy, bilateral cataract surgery, glaucoma, hypothyroidism, cholecystectomy, tonsillectomy, anemia, acute renal failure, and hyperlipidemia. ALLERGIES: None known. MEDICATIONS: As noted on JAN, which was reviewed. FAMILY HISTORY: No report of tuberculosis. SOCIAL HISTORY: Nonsmoker, no significant alcohol intake. PHYSICAL EXAMINATION: GENERAL: She was afebrile and hemodynamically stable. She is alert and cooperative and pleasant. No acute distress. Right facial abscess was packed. She has surrounding erythema. HEENT: Eyes without scleral icterus or conjunctivitis. Nose without drainage. Mouth dentition in good repair. No oral lesions. NECK: Supple, with no adenopathy. LUNGS: Clear. HEART: Regular. ABDOMEN: Soft and nontender. No other skin lesions noted. Moderately obese. [facility] [address] [place] [address] CONSULTATION Name: MIGUEL GRANDA Room #: 439-P ADM IN M.R.#: [id number] Admission: 10/17/21 Attend Phys: Krishna Suarez Discharge: Date of : 38 Report #: [id number] NEUROLOGIC: Cranial nerves intact. Strength in the upper and lower extremities within normal limits. PSYCHIATRIC: Mood without anxiety. LABORATORY DATA: Reviewed. MICROBIOLOGY: Reviewed. IMAGING: Chest x-ray reviewed. IMPRESSION: Right facial abscess, suspecting staphylococcal infection, hypothyroidism, on treatment, hyperlipidemia, on treatment, glaucoma, on treatment. RECOMMENDATION: Continue vancomycin, pending culture results. Follow serial laboratory studies. Continue local wound care. <ELECTRONICALLY SIGNED> By: Glynn Hayden MD 10/20/21 [phone] Glynn Hayden MD /nt
[2021-10-21 07:29] VITALS: BP 146/61
--- NOTE | 2021-10-21 12:30 | NUR ---
Discussed during los. Will need C & S before dc per attending physician. IV ABX. Cm spoke with [facility] they have clinical accepted for skilled rehab. [place] will have to seek for auth from [facility]. Cm left message for [facility] admission to call cm back.
--- NOTE | 2021-10-21 13:59 | NUR ---
A/O X 4. ROOM AIR. ONE ASSIST WITH WALKER. RIGHT AC IV SALINE LOCKED-DRESSING D/C/I. USES BEDSIDE COMMODE. HAS RIGHT CHEEK SURGICAL SITE-DRESSING D/C/I. ON CONTACT ISO FOR MRSA OF FACIAL WOUND. NO PAIN NOTED. HAS BRUISE RIGHT CHEECKA ND UNDER EYE.
[2021-10-21 15:54] VITALS: BP 144/61
[2021-10-21 20:32] VITALS: BP 118/51
--- NOTE | 2021-10-22 06:24 | NUR ---
ASSUMED PT CRAE THIS PM. PT IS ALERT AND ORIENTED X4. PT IS ON ISOLATION FOR MRSA FROM FACIAL WOUND. WOUND DRSG WAS CHANGED AND PT DID NOT C/O PAIN. PT IS UPX1 WITH WALKER. PT DID NOT EXPRESS ANY OTHER CONCERNS. FALL PRECAUTIIONS IN PLACE. WILL CONTINUE TO MONITOR.
[2021-10-22 06:42] LABS: CALCIUM 9.3 mg/dL (8.5-10.1); CREATININE 0.6 mg/dL (0.6-1.0); POTASSIUM 4.2 mmol/L (3.5-5.1)
[2021-10-22 08:00] VITALS: BP 148/64
--- NOTE | 2021-10-22 13:32 | NUR ---
ASSUMED PT CARE THIS AM. PT IS ALERT & ORIENTED X4. PT HAS IV SITE ON RAC SALINE LOCKED. PT IS ON CONTACT ISOLATION FOR MRSA. PT IS UP WITH ASSIST X1 TO THE BATHROOM WITH SOREN. PT IS ON ROOM AIR. PT HAS WOUND DRESSING ON R FACE C/D/I. WILL CONTINUE TO MONITOR PT. FOLLOW POC.
[2021-10-22 15:56] VITALS: BP 148/66
[2021-10-22 20:16] VITALS: BP 130/46
--- NOTE | 2021-10-23 04:01 | NUR ---
RECEIVED CARE OF THIS PATIENT AT 1900. PATIENT ALERT AND ORIENTED X4. UP WITH SBA. REMAINS IN CONTACT ISO FOR MRSA IN WOUND ON FACE. DRESSING ON WOUND D/I. DENIES PAIN. SLEPT MOST OF NIGHT.
[2021-10-23 08:10] VITALS: BP 187/91
--- NOTE | 2021-10-23 15:00 | NUR ---
ASSUMED CARE OF PT AT 0700 THIS MORNING. PT IS A/OX4 AND IS UP WITH 1X ASST TO RESTROOM. PT HAS WOUND ON RT CHEEK WITH BANDAGE AND TAPE, C/D/I. ASSESSMENTS NOTE IN CHART AND OTHERWISE UNREMARKABLE. FALL PRECAUTIONS ARE IN PLACE. CALL LIGHT AND OTHER NEEDS ARE IN REACH. MEDS AND TX GIVEN NEEEDED AND SCHEDULED. PT HAS NOT C/O ANY PAIN TODAY. WILL MONITOR AND NOTE ANY CHANGES.
[2021-10-23 15:04] VITALS: BP 187/91
[2021-10-23 17:08] VITALS: BP 168/76
[2021-10-23 20:33] VITALS: BP 141/63
--- NOTE | 2021-10-24 03:43 | NUR ---
UPON SHIFT REPORT, PT WITHOUT REPORT OF NEEDS OR OBSERVATION OF CONCERN. UPON SHIFT ASSESSMENT, PT AOX4. PT DENIES PAIN AND SOB WHILE ON ROOM AIR. PT TOLERATING PO INTAKE OF FLUIDS AND REGULAR DIET WITHOUT ISSUE. PT WITHOUT NAUSEA OR EMESIS. PT AMBULATING WITH X1 ASSIST AND WALKER TO BATHROOM, RESTING IN BED OTHERWISE. FREQUENT REPOSITIONING ENCOURAGED WHILE IN BED, PT NOTED TO SHIFT INDEPENDENTLY. SENSATION INTACT, CAPILLARY REFILL LESS THAN 3SEC, RADIAL PULSES PALPABLE, LEFT PEDAL PULSE PALPABLE, RIGHT PEDAL PULSE FAINT TO PALPATION. +1 EDEMA NOTED TO LLE, +2 EDEMA NOTED TO RLE. DRESSING TO RIGHT CHEEK, CLEAN, DRY AND INTACT- NO WOUND CARE PERFORMED PER PT REQUEST. PT ENCOURAGED TO NOTIFY STAFF FOR ALL NEEDS, CALL LIGHT WITHIN REACH, BED ALARM ON, BED LOCKED IN LOWEST POSITION, FREQUENT MONITORING WILL CONTINUE.
--- NOTE | 2021-10-24 09:17 | NUR ---
A/O X 4. ROOM AIR, ONE ASSIST WITH WALKER, RIGHT AC PIV. CONT B/B. 2+ PITTING EDEMA BILATERAL LEGS/FEET, RIGHT CHEEK SURGICAL SITE, NO BRUISING NOTED, DRESSING DRY, CLEAN, INTACT. ISO FOR MRSA OF CHEEK SITE. TIMOLOL EYE DROPS. NO PAIN NOTED AT THIS TIME.
--- NOTE | 2021-10-24 09:47 | NUR ---
voice message from her daughter, kalen who is out of town, requesting that her mom get at shower because before the hospital she was only able to take spit bath and really wants her hair washed per kalen sellers. Jacob passed on to bedside staff. beside staff reported that she had shower on sunday. kalen # [phone]. jacob left message with nella at [facility] to see if they got insurance auth yet?
[2021-10-24 12:51] VITALS: BP 141/63
[2021-10-24 17:15] VITALS: BP 141/68
[2021-10-24 20:22] VITALS: BP 147/64
--- NOTE | 2021-10-25 03:40 | NUR ---
PATIENT AOX4 MAKES THIS SHIFT. PATIENT AMBULATES TO THE BATHROOM SLOWLY WITH A WALKER, WITH STEADY GAITS. PATIENT ON ISOLATION FOR MRSA. PATIENT IS CALM AND COOPERATIVE WITH CARE AND MEDS. FALL PRECAUTION IN PLACE. PATIENT IN BED ASLEEP AT THIS TIME BREATHING REGULAR AND UNLABOURED.
[2021-10-25 05:52] LABS: ABSOLUTE NEUTROPHILS 5.3 thou/uL (1.4-8.2); BASOPHILS 0.6 % (0.0-2.0); EOSINOPHILS 1.9 % (0.0-3.0); HEMATOCRIT 40.1 % (37.0-47.0); HEMOGLOBIN 13.2 gm/dL (12.0-15.0); MCH 30.5 pg (26.0-34.0); MCV 92.5 fL (80.0-100.0); MONOCYTES 10.3 % (1.0-8.0); PLATELET COUNT 263 thou/uL (150-400); POLYS 59.2 % (36.0-66.0); RBC 4.33 mil/uL (4.20-5.00); RDW 13.9 % (10.5-14.5); WBC 8.9 thou/uL (4.0-11.0)
[2021-10-25 06:20] LABS: CALCIUM 9.2 mg/dL (8.5-10.1); CREATININE 0.6 mg/dL (0.6-1.0); POTASSIUM 3.9 mmol/L (3.5-5.1); TOTAL BILIRUBIN 0.5 mg/dL (0.2-1.0); TOTAL PROTEIN 6.5 g/dL (6.4-8.2)
--- NOTE | 2021-10-25 08:11 | NUR ---
A/O X 4. ROOM AIR, ONE ASSIST WITH TRANSFERS WITH WALKER, RIGHT AC IV, STRESS INCONT AND WEARS BRIEF, NO PAIN NOTED, RIGHT CHEEK OPEN TO AIR, NO DRAINAGE NOTED, NO REDNESS NOTED, ON ISO FOR MRSA OF WOUND. REGULAR DIET.
[2021-10-25 08:34] VITALS: BP 150/67
[2021-10-25] MEDS ORDERED: LINEZOLID600 MG PO (10:45)
[2021-10-25] MEDS ORDERED: TIROSINT75 MCG PO (10:45)
--- NOTE | 2021-10-25 13:46 | NUR ---
discussed during los with the attending physician. Dc home today with hh. Cm notified nella again at [facility], that auth to stop for skilled rehab. Referral resent to [facility] ([facility]) express [place] back to [place] or [facility] for short respite stay to then transition to her [place].
[2021-10-25 16:47] VITALS: BP 128/59
== END 2021-10-25 18:53 | disposition home health service (06) | DRG 603 ==
LOC: ER 13:04 → EROBS 17:15 → 4S 17:15 → TBA 10-19 12:38 → 4S 10-19 15:46
PROVIDERS: Internal Medicine; Nurse Practitioner; Specialist; ADMIT Hospitalist; ATTEND Hospitalist
PROC: 0J910ZZ Drainage of Face Subcutaneous Tissue and Fascia, Open Approach (ICD-10-PCS; principal; 2021-10-19)
DX: L03.211 Cellulitis of face (principal); L02.01 Cutaneous abscess of face; E03.9 Hypothyroidism, unspecified; E78.5 Hyperlipidemia, unspecified; B95.62 Methicillin resistant Staphylococcus aureus infection as the cause of diseases classified elsewhere; Z20.822 Contact with and (suspected) exposure to COVID-19; Z98.42 Cataract extraction status, left eye; Z98.41 Cataract extraction status, right eye; Z90.49 Acquired absence of other specified parts of digestive tract; Z82.49 Family history of ischemic heart disease and other diseases of the circulatory system; Z79.82 Long term (current) use of aspirin; Z79.899 Other long term (current) drug therapy
CPT/HCPCS: 10195; 50010; 50101; 50386; 50398; 62110; 62900; 64037; 70005

== ENCOUNTER 2021-11-07 16:28 | Inpatient (IN) | payer OTHER ==
[~2021-11-07] VITALS: Ht 152.4 cm; Wt 72.6 kg
[~2021-11-07 16:28] MED LIST changes: +ASA81BEC PO; +LINEZOLID600 MG PO; +NORVASC5 M1 PO; +PRAVASTATIN SOD40 MG PO; +TIROSINT75 MCG PO
[2021-11-07 17:48] VITALS: BP 175/79
[2021-11-07 21:49] LABS: URINE BILIRUBIN NEGATIVE (Negative); URINE BLOOD TRACE (Negative); URINE CLARITY SL CLOUDY; URINE COLOR YELLOW; URINE GLUCOSE-RANDOM* NEGATIVE (Negative); URINE KETONES NEGATIVE (Negative); URINE NITRITE-REFLEX NEGATIVE (Negative); URINE PROTEIN (DIPSTICK) NEGATIVE (Negative); URINE SPECIFIC GRAVITY >= 1.030 (1.005-1.035); URINE UROBILINOGEN 0.2 E.U./dl (0.2-1.0)
[2021-11-07 21:54] LABS: URINE LEUKOCYTES-REFLEX 2+ (Negative)
[2021-11-07 21:56] LABS: SQUAMOUS 4-10 Moderate /LPF (0-3)
[2021-11-07 21:57] LABS: BACTERIA-REFLEX 1-9 Few /HPF (None Seen); CALCIUM OXALATE 4-10 Moderate /LPF (None Seen); CASTS None Seen /LPF (None Seen); MUCUS 4-6 Moderate strn/LPF (None Seen); URINE RBC 3-10 Few /HPF (NONE SEEN); URINE WBC-REFLEX 6-15 Few /HPF (0-5)
[2021-11-07 22:13] LABS: ABSOLUTE NEUTROPHILS 3.9 thou/uL (1.4-8.2); BASOPHILS 0.5 % (0.0-2.0); EOSINOPHILS 0.9 % (0.0-3.0); HEMATOCRIT 42.1 % (37.0-47.0); HEMOGLOBIN 13.8 gm/dL (12.0-15.0); LYMPHOCYTES 37.5 % (24.0-44.0); MCH 30.7 pg (26.0-34.0); MCHC 32.7 g/dL (28.0-37.0); MCV 93.9 fL (80.0-100.0); MONOCYTES 11.4 % (1.0-8.0); PLATELET COUNT 193 thou/uL (150-400); POLYS 49.7 % (36.0-66.0); RBC 4.48 mil/uL (4.20-5.00); RDW 14.8 % (10.5-14.5); WBC 7.9 thou/uL (4.0-11.0)
[2021-11-07 22:21] LABS: CALCIUM 9.7 mg/dL (8.5-10.1); CREATININE 0.5 mg/dL (0.6-1.0); POTASSIUM 3.7 mmol/L (3.5-5.1)
[2021-11-07 22:31] LABS: ALBUMIN 3.8 g/dL (3.4-5.0); MAGNESIUM 2.2 mg/dL (1.8-2.4); TOTAL BILIRUBIN 0.3 mg/dL (0.2-1.0); TOTAL PROTEIN 7.5 g/dL (6.4-8.2)
--- NOTE | 2021-11-08 07:36 | EKG ---
[place] [address] [facility] [place] [address] ELECTROCARDIOGRAM REPORT Name: MIGUEL GRANDA Room #: 170-4 ADM IN M.R.#: [id number] Admission: 11/08/21 Attend Phys: Demian Jane MD Discharge: Date of : 38 Report #: [id number] [facility] ED Test Date: 2021-11-07 Test Time: 21:38:21 Pat Name: MIGUEL GRANDA Department: Room: 170 Gender: F Car Runner: RUSSEL : 1940 Requested By: Tesha Cleaning Order Number: [id number] MD: Mckinley Bennett Measurements Intervals Rose Rate: 82 P: 64 CT: 143 QRS: 18 QRSD: 95 T: 148 QT: 362 QTc: 423 Interpretive Statements Sinus rhythm Ventricular premature complex LVH with secondary repolarization abnormality Compared to ECG 11/07/2021 21:20:29 Ventricular premature complex(es) now present Atrial premature complex(es) no longer present Electronically Signed On 11-08-2021 7:36:44 SHANK TAPER by Mckinley Bennett [email or web address] <ELECTRONICALLY SIGNED> By: Mckinley Bennett MD, [facility] 11/08/21 0736 2138 Mckinley Bennett MD, [facility] /EPI
--- NOTE | 2021-11-08 07:36 | EKG ---
[place] [address] [facility] [place] [address] ELECTROCARDIOGRAM REPORT Name: MIGUEL GRANDA Room #: 170-4 ADM IN M.R.#: [id number] Admission: 11/08/21 Attend Phys: Demian Jane MD Discharge: Date of : 38 Report #: [id number] [facility] ED Test Date: 2021-11-07 Test Time: 21:20:29 Pat Name: MIGUEL GRANDA Department: Room: 170 Gender: F Computer Systems Integrator: RUSSEL : 1940 Requested By: Tesha Cleaning Order Number: [id number] MD: Mckinley Bennett Measurements Intervals [place] Rate: 79 P: 51 WV: 157 QRS: 19 QRSD: 87 T: 158 QT: 377 QTc: 433 Interpretive Statements Sinus rhythm Atrial premature complex Probable left atrial enlargement LVH with secondary repolarization abnormality Baseline wander in lead(s) V1 No previous ECG available for comparison Electronically Signed On 11-08-2021 7:36:32 LOOM OPERATOR by Mckinley Bennett [email or web address] <ELECTRONICALLY SIGNED> By: Mckinley Bennett MD, [facility] 11/08/21735 19 19 Mckinley Bennett MD, [facility] /EPI
[2021-11-08 07:42] LABS: CALCIUM 9.2 mg/dL (8.5-10.1); CREATININE 0.6 mg/dL (0.6-1.0); POTASSIUM 3.8 mmol/L (3.5-5.1)
--- NOTE | 2021-11-08 10:07 | EKG ---
[place] [address] [facility] [employer] [place] [address] ELECTROCARDIOGRAM REPORT Name: MIGUEL GRANDA Room #: 170-4 ADM IN M.R.#: [id number] Admission: 11/08/21 Attend Phys: Demian Jane MD Discharge: Date of : 38 Report #: [id number] [facility] ED Test Date: 2021-11-07 Test Time: 21:48:06 Pat Name: MIGUEL GRANDA Department: Room: 170 4 Gender: F Fender Mechanic Apprentice: IQRA : 1940 Requested By: Tesha Cleaning Order Number: [id number] MD: Otilio Johnson Measurements Intervals [place] Rate: 81 P: 41 RI: 145 QRS: 10 QRSD: 97 T: 148 QT: 392 QTc: 455 Interpretive Statements Sinus rhythm Probable left atrial enlargement LVH with secondary repolarization abnormality Compared to ECG 11/07/2021 21:38:21 Ventricular premature complex(es) no longer present Electronically Signed On 11-08-2021 10:07:42 RESIDENT CARE TECHNICIAN by Otilio Johnson [email or web address] <ELECTRONICALLY SIGNED> By: Otilio Johnson MD, [facility] 11/08/21 1007 2148 2148 Otilio Johnson MD, [facility] /EPI
--- NOTE | 2021-11-08 16:56 | NUR ---
81 year old female who resides in an Independent Living apartment at [facility] and was last discharged home to this dwelling on 10-25-[address] [facility] presents to the ED on 11-06-21 with her daughter for frequent falls. The patient herself reports increase in generalized weakness. The patient has been admitted for a UTI and increased weakness with falls. Per the ED patient notes vaccinated and per ID NOW is negative. Therapy orders have been placed. Son Aron Palomino at [phone] and daughter in law Monica Perez at [phone]. Spoke with Monica and expressed concerns as her M-I-L is fearful of SNF right now given number of recent COVID cases. Explained that therapy has been ordered and will review to see if the patient may be a candidate to seek acute rehab services. This would be the family and patient's preference. Re-introduced again the role of CM and assured her that CM will follow for discharge needs.
[2021-11-08 20:00] VITALS: BP 143/63
[2021-11-09 08:41] VITALS: BP 155/72
--- NOTE | 2021-11-09 09:45 | NUR ---
11-09-21 at 0940 - Spoke with daughter Oriana Perez who has shared DPOA with her brother and S-I-L and states she says that she is the first contact as she is local and in contact with her being local. Her phone numbers are Home: or Cell of [phone]. Discussed POC and that upon therapy evaluations working in conjunction with medical assessments that CM will follow for discharge needs that become identified. CM will continue to follow this case.
[2021-11-09 11:09] LABS: ABSOLUTE NEUTROPHILS 4.4 thou/uL (1.4-8.2); BASOPHILS 0.4 % (0.0-2.0); EOSINOPHILS 0.9 % (0.0-3.0); HEMATOCRIT 41.8 % (37.0-47.0); HEMOGLOBIN 13.8 gm/dL (12.0-15.0); LYMPHOCYTES 24.5 % (24.0-44.0); MCH 30.9 pg (26.0-34.0); MCHC 33.1 g/dL (28.0-37.0); MCV 93.5 fL (80.0-100.0); MONOCYTES 7.6 % (1.0-8.0); PLATELET COUNT 209 thou/uL (150-400); POLYS 66.6 % (36.0-66.0); RBC 4.47 mil/uL (4.20-5.00); RDW 14.3 % (10.5-14.5); WBC 6.5 thou/uL (4.0-11.0)
[2021-11-09 11:24] LABS: CALCIUM 9.6 mg/dL (8.5-10.1); CREATININE 0.7 mg/dL (0.6-1.0); POTASSIUM 3.9 mmol/L (3.5-5.1)
--- NOTE | 2021-11-09 13:19 | NUR ---
Case discussed with the care team. Therapy evals in progress and 5N consult requested to pt's motivation to return to her indep apt at [facility] and care for her handicapp son who lives with her. She is extremely motivated and has had several falls since her return home with on 10-25-21. Awaiting imput from the rehab team.
[2021-11-09 20:00] VITALS: BP 142/72
[2021-11-10 10:12] VITALS: BP 153/52
[2021-11-10 12:17] VITALS: BP 153/52
--- NOTE | 2021-11-10 14:36 | NUR ---
Care team recommendations for snf at mo discussed with the pt at bedside and dtr Catalina via speaker phone. After much discussion the pt is agreeable to SNF at [facility]. Referral faxed and called to admissions. They will need [facility] auth. Pt is dc ready pending acceptance and ins auth. Chart copy requested. 5N declined as pt's insurance will not approve. Pt/dtr agreeable. Carole alerted that pt will not be going directly back to her indep living apt.
[2021-11-10 20:00] VITALS: BP 147/49
[2021-11-11 03:57] VITALS: BP 140/43
[2021-11-11] MEDS ORDERED: CEFDINIR300 MG PO (08:43)
[2021-11-11] MEDS ORDERED: MUPIROCIN1 GM TOP (09:14)
--- NOTE | 2021-11-11 09:48 | NUR ---
DC ORDERS FAXED TO ADMISSIONS AT [facility]. THEY ARE CONFIRM A W/C VAN PICKUP TIME. [facility] BEING FAXED TO THEM WELL. NURSING TO CALL REPORT TO [phone]. CHART COPY AND ORDERS TO BE SENT WITH THE PT.
[2021-11-11 10:01] VITALS: BP 153/52
[2021-11-11 11:42] VITALS: BP 153/52
== END 2021-11-11 11:47 | DRG 690 ==
LOC: ER 16:28 → EROBS 11-08 00:12
PROVIDERS: Nurse Practitioner; Nurse Practitioner Family; ADMIT Hospitalist; ATTEND Hospitalist
DX: N39.0 Urinary tract infection, site not specified (principal); N17.9 Acute kidney failure, unspecified; E03.9 Hypothyroidism, unspecified; R53.81 Other malaise; R53.1 Weakness; I10 Essential (primary) hypertension; E78.5 Hyperlipidemia, unspecified; Z20.822 Contact with and (suspected) exposure to COVID-19; M81.0 Age-related osteoporosis without current pathological fracture; G47.00 Insomnia, unspecified; B96.89 Other specified bacterial agents as the cause of diseases classified elsewhere; R26.9 Unspecified abnormalities of gait and mobility; B96.1 Klebsiella pneumoniae [K. pneumoniae] as the cause of diseases classified elsewhere; M17.10 Unilateral primary osteoarthritis, unspecified knee; R29.6 Repeated falls; Z91.81 History of falling; Z98.42 Cataract extraction status, left eye; Z98.41 Cataract extraction status, right eye; Z90.49 Acquired absence of other specified parts of digestive tract; Z86.73 Personal history of transient ischemic attack (TIA), and cerebral infarction without residual deficits; Z86.19 Personal history of other infectious and parasitic diseases